=== PATIENT | female | born 1935 | race Caucasian/White ===

== ENCOUNTER 2021-12-18 03:34 | Inpatient (IN) | payer MEDICARE, MEDICAID, SELFPAY ==
[2021-12-18] VITALS (59 sets, daily range): BP systolic 52–143; BP diastolic 31–80; PULSE 98–118; RESP 16–34; TEMP 36.8–38.4; O2SAT 76–100; BMI 36.6
--- NOTE | 2021-12-18 03:43 | XRR_ITS ---
PROCEDURE INFORMATION: Exam: XR Chest Exam date and time: 12/18/2021 3:44 AM Age: 86 years old Clinical indication: Device placement; Ett placement (vent status); Patient HX: Patient arrived via EMS for possible stemi alert. Patient C/O chest and mid back pain with witnessed emesis. Patient had to be intubated shortly after er arrival. ; Additional info: Intubation TECHNIQUE: Imaging protocol: XR of the chest. Views: 1 view. COMPARISON: CR Chest 1 [place] [id number] 12/02/2017 1:55 PM FINDINGS: Tubes, catheters and devices: Support tubes and lines are in good position. Lungs: Hazy left basilar opacity which could be secondary to atelectasis or pneumonia. Pleural spaces: Unremarkable. No pleural effusion. No pneumothorax. Heart/Mediastinum: Unremarkable. No cardiomegaly. Bones/joints: Unremarkable. XR/XR chest 1V portable [id number] IMPRESSION: 1. Hazy left basilar opacity which could be secondary to atelectasis or pneumonia. 2. Support tubes and lines are in good position.
--- NOTE | 2021-12-18 03:56 | ECG_ITS ---
[facility] Test Date: 2021-12-18 Pat Name: Lety Rogers Department: Room: ICU11 Gender: Female Clinical Phlebotomist: : [id number] Requested By: Werner Delgadillo Order Number: [id number] Svetlana MD: Enzo Brandon M.D. Measurements Intervals [place] Rate: 113 P: 5 ID: [id number] QRS: -41 QRSD: 145 T: 117 QT: 336 QTc: 461 Interpretive Statements SINUS TACHYCARDIA LEFT AXIS DEVIATION [QRS AXIS < -30] LEFT BUNDLE BRANCH BLOCK [120+ ms QRS DURATION, 80+ ms Q/S IN V1/V2, 85+ ms R IN I/aVL/V5/V6] Compared to ECG 12/02/2017 13:49:02 Left-axis deviation now present Left bundle-branch block now present Sinus rhythm no longer present Electronically Signed On 12-18-2021 11:32:58 CDT by Enzo Brandon M.D. [id number]
[2021-12-18 04:13] LABS: Basophils # 0.1 10^3/uL (0.0-0.1); Basophils % 0.3 %; Eosinophils # 0.4 10^3/uL (0.0-0.8); Eosinophils % 2.1 %; Hematocrit 33.3 % (37.0-47.0); Hemoglobin 10.1 g/dL (11.5-15.3); Lymphocytes # 5.6 10^3/uL (0.8-4.8); Lymphocytes % 30.8 %; Mean Corpuscular HGB Conc 30.3 g/dL (30.0-36.0); Mean Corpuscular Hemoglobin 26.4 pg (28.0-34.0); Mean Corpuscular Volume 87.2 fl (81-99); Mean Platelet Volume 9.4 fL (7.4-10.4); Monocytes # 0.8 10^3/uL (0.2-0.9); Monocytes % 4.5 %; Neutrophils # 11.21 10^3/uL (1.8-7.7); Neutrophils % 61.3 %; Nucleated Red Blood Cells % 0 %; Platelet Count 1058 10^3/cmm (130-400); Red Blood Count 3.82 10^6/uL (4.1-5.3); Red Cell Distribution Width 14.7 % (12.1-15.1); White Blood Count 18.3 10^3/uL (4.0-10.0)
[2021-12-18] MEDS: aspirin 325 mg Tablet PO ×2 (04:23→08:30)
[2021-12-18 04:32] LABS: Alanine Aminotransferase 18 U/L (0-33); Albumin Level 4.6 g/dL (3.5-5.2); Alkaline Phosphatase 125 IU/L (35-105); Anion Gap 22.8 (5-19); Aspartate Amino Transferase 26 U/L (0-32); Blood Urea Nitrogen 25 mg/dL (8-23); Calcium 9.7 mg/dL (8.5-10.5); Carbon Dioxide 19 mmol/L (22-29); Chloride 95 mmol/L (98-107); Creatine Phosphokinase 74 U/L (26-192); Globulin 2.9 g/dL (1.3-4.6); Glucose 145 mg/dL (65-115); NT Pro B Type Natriuretic Pept 859 pg/mL (0-450); Osmolality Calculated 281 mOsm/kg (285-295); Potassium 4.8 mmol/L (3.5-5.1); Sodium 132 mmol/L (136-145); Total Bilirubin 0.2 mg/dL (0.15-1.2); Total Protein 7.5 g/dL (6.6-8.7)
[2021-12-18] MEDS: EPINEPHrine 2.5 MG in sodium chloride 0.9% 250 ML 30 MG IV (04:32)
[2021-12-18 04:33] LABS: Troponin(5th) Baseline 61 ng/L (0-10)
[2021-12-18 04:34] LABS: INR 0.94 (0.8-1.2); Partial Thromboplastin Time 23.1 SECONDS (23.9-36.7)
--- NOTE | 2021-12-18 04:35 | PM.CONSULT ---
Providers/Reason For Consult Consulting Physician/Specialty*: Cardiovascular medicine Reason for Consult*: STEMI alert Requesting Physician: Dr. Garcia Primary Care Provider: Hu Del Rosario History of Present Illness History of Present Illness Lety Rogers is a 86 year old female whose past medical history is largely unknown. She does not receive much of her care at this hospital choosing to have her care given in [place]. Her daughter is with her. Her daughter is also not particularly well versed in the patient's past medical history. All she could tell me was that the patient has stents, is a diabetic and has some form of leukemia. Patient's medication list is 6 pages long. Her daughter told me that the patient called her at home stating that she did not feel well and was sick . Patient has been constipated for the last couple of days. The patient's daughter helped her onto the bedside commode and the patient began to have nausea and vomited and then had glassy eyes . She did not have chest pain or shortness of breath. The daughter then called 911. She was brought here and was hypotensive. She was still nauseated and vomiting. She was not having any chest discomfort. The original EKG showed what the emergency room physician thought was some ST segment elevation in one of the inferior leads. Subsequently the patient became more ill and required endotracheal intubation and sedation. She was given 30 mg of etomidate, 100 mg of succinylcholine and because her blood pressure was dropping was given about 5 doses of 0.1 mL of epinephrine. She was then placed on an epinephrine drip. She was given 4000 units of heparin and aspirin. After the intubation EKG revealed the onset of a left bundle branch block and so as a result of that a STEMI alert was called. When I came in the patient was still being resuscitated. Once the resuscitation improved the patient's status, her QRS complexes narrow down. A repeat EKG showed no ST segment elevation inferiorly or anteriorly. We then called off the STEMI alert. As mentioned we have very little regarding her past medical history. Original in early labs include a white blood cell count of 18.3, hemoglobin of 10.1, CO2 of 19 and a creatinine of 1.6. Her chest x-ray is unremarkable except for small area of haziness at the left base. There is no evidence of congestive heart failure. Her medications include an albuterol inhaler, Flonase inhaler, insulin, Combivent inhaler, sublingual nitroglycerin, baclofen, thyroid, atorvastatin, Lasix 20 mg daily, ciprofloxacin, lisinopril 40 mg daily, isosorbide mononitrate 30 mg daily, Plavix 75 mg daily, Keppra, Effexor, metoprolol succinate 25 mg daily, multivitamins, low-dose aspirin, and other as needed medicines such as Tylenol. Review of Systems Narrative: Review of systems is unobtainable due to the patient's intubated status. Medications/Allergies Allergies Allergy/AdvReac Type Severity Reaction Status Date / Time ciprofloxacin Allergy Unknown Verified 12/18/21 03:34 metformin Allergy ADR-Headach Verified 12/18/21 03:34 e morphine Allergy ALGY-Swell Verified 12/18/21 03:34 Lip/Tongue/Throat nitrofurantoin Allergy ADR-Vomitin Verified 12/18/21 03:34 g rofecoxib Allergy ALGY-Hives Verified 12/18/21 03:34 Sulfa (Sulfonamide Allergy ADR-Vomitin Verified 12/18/21 03:34 Antibiotics) g Current Medications Generic Name Dose Route Start Last Admin Trade Name Freq PRN Reason Stop Dose Admin Epinephrine HCl 2.5 mg/ Sodium 252.5 mls @ 0 mls/hr 12/18/21 04:15 12/18/21 04:32 Chloride IV 0.05 mcg/kg/min .Q0M MOHSEN 30 mls/hr Administration Protocol Per Protocol PFSH Acute PFSH: Medical History (Updated 12/18/21 @ 04:58 by Enzo Brandon MD) CAD (coronary artery disease) CKD (chronic kidney disease) Congestive heart failure COPD (chronic obstructive pulmonary disease) DM type 2 (diabetes mellitus, type 2) Dyslipidemia Frequent UTI Hypothyroidism Occluded coronary artery stent Sarcoidosis Surgical History (Updated 12/18/21 @ 04:47 by Raphael Bravo MD) H/O Spinal surgery H/O: hysterectomy History of cholecystectomy Hx of appendectomy Stented coronary artery Family History (Updated 12/18/21 @ 04:37 by Raphael Bravo MD) Other CAD (coronary artery disease) DM type 2 (diabetes mellitus, type 2) Vitals/I&O/Wt Last Vital Signs Temp 98.2 F 04/02/22 03:32 Pulse 113 H 12/18/21 03:32 Resp 34 H 12/18/21 03:32 BP 99/55 12/18/21 03:32 Pulse Ox 88 L 12/18/21 03:32 Weight last 48 hrs Weight 200 lb Physical Exam Narrative: GENERAL: GENERAL: In general she is intubated and sedated. Her blood pressure is 80/40 on an epinephrine drip HEENT: Exam within normal limits. NECK: Supple without jugular vein distention. The carotid upstroke is normal without bruits. BACK: Exam normal. LUNGS: Clear. HEART: Regular rate and rhythm. Tachycardia ABDOMEN: Benign without organomegaly or tenderness. There is a large midline scar EXTREMITIES: No edema. NEUROLOGIC: Exam is not done due to her intubated status SKIN: Unremarkable. Data : 12/18/21 03:35 12/18/21 03:35 Other Labs: First troponin 61. BNP 859. A&P Assessment and plan (1) Hypotension: Status: Acute (2) Metabolic acidosis: Status: Acute (3) Elevated troponin: Status: Acute (4) Renal insufficiency: Status: Acute (5) CAD (coronary artery disease): Status: Acute (6) CKD (chronic kidney disease): Status: Acute (7) COPD (chronic obstructive pulmonary disease): Status: Acute (8) DM type 2 (diabetes mellitus, type 2): Status: Acute (9) Respiratory failure: Status: Acute Plan She will. When I looked at the original EKG I did not see any evidence of acute ST segment elevation which would qualify for a STEMI. The left bundle branch block occurred when she was hypotensive and being resuscitated. This has resolved now that the resuscitation is complete. Repeat EKG does not show any evidence of ST elevation either inferiorly or anteriorly. Because of this, I decided not to take her to the catheterization laboratory. We will follow her troponins. Other complications include what is most likely chronic renal failure with an acute exacerbation, metabolic acidosis among others. She is certainly critically ill and I have communicated this to her daughter as best as possible. 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
[2021-12-18] MEDS: heparin 5,000 unit/mL INJ 1 mL 4000 UNIT IVP (04:36)
[2021-12-18] MEDS: piperacillin-tazobactam 4.5 GM in sodium chloride 0.9% (plus) 50 ML IV (04:53)
[2021-12-18] MEDS: vancomycin 1,000 MG in sodium chloride 0.9% 250 ML 250 MG IV (05:07)
[2021-12-18 05:14] LABS: ABG PCO2 34.6 mmHg (35-45); ABG PH Result 7.27 (7.35-7.45); Arterial Blood Gas Hematocrit 30.8 % (37-47); Base Excess ABG -10.1 mmol/L (-2.0-2.0); Blood Gas Allen Test Pos; Blood Gas Sample Site Radial, left; Blood Gas Sample Type Arterial; HCO3 ABG 15.9 mmol/L (22-26); Oxygen Device VENT
--- NOTE | 2021-12-18 05:17 | W.ED.CHESTPA ---
HPI - Chest Pain General: Chief Complaint: Chest Pain Stated Complaint: CP/Back pain, hypotensive Time Seen by Provider: 12/18/21 03:56 History of Present Illness: 86-year-old female presenting with chest discomfort. I was called by EMS when they were in route, as she was having chest pain and shortness of breath. In route for EMS, she had ST elevation of 1 block in leads III and aVF. She was also hypotensive. She been given push dose epinephrine twice, fentanyl for pain, and 1 L bolus of fluid. She presented with worsening hypoxia. She is unable to give much history. She has been nauseated and vomiting at home. MD complaint: chest pain Pertinent past history: other Onset (ago): hour(s) Timing of current episode: constant Onset: during rest Pain location: substernal and epigastric Pain radiation: none Severity: severe Quality: tightness and heaviness Relieving factors: nothing Exacerbating factors: nothing Associated symptoms: Reports abdominal pain, diaphoresis, dyspnea, leg edema, nausea, palpitations and vomiting; Deny fever(s) Treatment prior to arrival: oxygen and other Review of Systems Const: Reports: diaphoresis; Denies: fever(s) ENMT: Denies: throat pain Card: Reports: chest pain and palpitations Resp: Reports: dyspnea and non-productive cough; Denies: productive cough GI: Reports: abdominal pain, nausea and vomiting [facility] ED PFSH: Medical History CAD (coronary artery disease) CKD (chronic kidney disease) Congestive heart failure COPD (chronic obstructive pulmonary disease) DM type 2 (diabetes mellitus, type 2) Dyslipidemia Frequent UTI Hypothyroidism Intolerance of continuous positive airway pressure (CPAP) ventilation Occluded coronary artery stent MADAY (obstructive sleep apnea) Sarcoidosis Surgical History H/O Spinal surgery H/O: hysterectomy History of cholecystectomy Hx of appendectomy Stented coronary artery Family History Other CAD (coronary artery disease) DM type 2 (diabetes mellitus, type 2) Social History Smoking and tobacco status: never smoked Lives independently: No Household members: family Physical Exam Const: GENERAL APPEARANCE: in distress, ill appearing and frail appearing NUTRITIONAL APPEARANCE: obese ORIENTATION/CONSCIOUSNESS: Yes awake, Yes oriented to person and Yes confused HENMT: COMMON NORMALS: normocephalic, atraumatic and Normal external nose present HEAD & SCALP: normocephalic and atraumatic NOSE: Normal external nose present Eye: COMMON NORMALS: Equal, round and reactive pupils present and EOMs intact bilaterally PUPIL: Yes Equal, round and reactive pupils present Chest: COMMONS NORMALS: normal inspection of the chest Resp: EFFORT & INSPECTION: Yes respiratory distress, Yes labored and Yes uses accessory muscles AUSCULTATION: rales and rhonchi Cardio: COMMON NORMALS: regular rhythm RATE: tachycardic RHYTHM: regular rhythm GI: COMMON NORMALS: Soft to palpation INSPECTION: Yes abdominal distension PALPATION: Yes Soft to palpation, Yes Tenderness to palpation present (GI) and Yes Guarding due to palpation present (GI) Neuro: UMM COMA SCALE: document GCS findings Umm coma scale eye opening: Spontaneous Schwertner coma scale verbal response: Confused Umm coma scale motor response: Obey commands Schwertner coma scale total score: 14 SENSORIUM/ORIENTATION: Yes oriented to person Procedures Intubation Time out performed: No sedative: Etomidate Mg Given: 20 paralytic: Succinylcholine Mg Given: 100 Laryngoscope: Dina ET Tube Size: 7.5 ET Tube Uncuffed: No Tube Secured Depth (cm): 22 Tube Secured Location: lips Tube Placement Confirmation: visualized tube passing through cords, equal breath sounds bilaterally and confirmation by capnometry Patient Tolerated Procedure: no complications Intubation Complications: none Course Consultations: Consultation #1: reza Consultation #2: shayne Vital Signs: Vital signs: Vital Signs Temperature 100.6 F H 12/19/21 02:00 Pulse Rate 103 H 12/19/21 02:00 Respiratory Rate 17 12/19/21 03:35 Blood Pressure 98/47 12/19/21 02:00 Pulse Oximetry 94 12/19/21 03:35 MDM - Chest Pain Medical Decision Making 86-year-old female presenting with chest discomfort. Initial EKG showed 1 mm of elevation in 3 and aVF in the field. EKG was difficult to get due to respiratory distress and chest wall motion when she got here. Oxygen saturations were marginal on 100% nonrebreather, so the decision was made to intubate the patient as her mental status was beginning to fail and she was not pulling adequate tidal volumes. She was intubated without complication, after which EKG was obtained and did not show significant ST elevation in those inferior leads or any other lead. Shortly thereafter, within 3 minutes or so, her complexes widened out, to show a large left bundle. Cardiology had been consulted on the patient's arrival due to the ST elevation apparent in the field. With recommendations to repeat EKG after placing on ventilator, and with widening of complex, they were consulted again. They agreed to call the Straightening Machine Feeder in and see the patient in the ER in the meantime the patient became significantly hypotensive. Push dose epinephrine was used until epinephrine drip was available and was started. This helped pressure significantly. Given her apparent hypoxia after 1 L bolus in route, we elected not to use fluid boluses for blood pressure support initially. After blood pressure improved, complexes narrowed again, and the left bundle went away. Given her hypotension, and hypoxia, it was thought best not to take the Straightening Machine Feeder with her being unstable. Despite the hypotension, her troponin did not elevate terribly significantly at 2 hours. Her initial white blood cell count was 18.3. Hemoglobin 10. Bicarbonate 19. Creatinine 1.6. Chest x-ray showed a gas-filled loop in the colon. Repeat chest x-ray showed tubes in appropriate positions. Orogastric tube was placed with a fair amount of output. She went to the ICU. Pressors were at that point were both Levophed and epinephrine. She was covered with antibiotics given her lactic acid level of 6. Lab Data : 12/18/21 03:35 12/18/21 03:35 Radiology Impressions KUB X-Ray 12/18/21 05:24 IMPRESSION: 1. Examination limited by body habitus. 2. Nondistended Gas-filled loop of colon is present. Otherwise, the abdomen is largely gasless. Abdomen Ultrasound 12/18/21 07:05 IMPRESSION: No intraperitoneal fluid in the visualized abdomen. Renal Ultrasound 12/18/21 07:05 IMPRESSION: Technically limited examination with poor visualization of the kidneys, which can be better evaluated with CT if clinically indicated. Chest X-Ray 12/18/21 07:58 IMPRESSION: 1. Termination of endotracheal tube 3.0 cm above the leslie. Termination of central venous catheter in superior vena cava. Feeding tube courses in the gastric body with distal tip not visualized. 2. Additional findings as described above. Venous Duplex 12/18/21 13:43 IMPRESSION: No evidence of deep vein thrombosis. Laboratory Results WBC 18.3 10^3/uL (4.0-10.0) H 12/18/21 03:35 RBC 3.82 10^6/uL (4.1-5.3) L 12/18/21 03:35 Hgb 10.1 g/dL (11.5-15.3) L 12/18/21 03:35 Hct 33.3 % (37.0-47.0) L 12/18/21 03:35 MCV 87.2 fl (81-99) 12/18/21 03:35 MCH 26.4 pg (28.0-34.0) L 12/18/21 03:35 MCHC 30.3 g/dL (30.0-36.0) 12/18/21 03:35 RDW 14.7 % (12.1-15.1) 12/18/21 03:35 Plt Count 1058 10^3/cmm (130-400) H 12/18/21 03:35 MPV 9.4 fL (7.4-10.4) 12/18/21 03:35 Neut % (Auto) 61.3 % 12/18/21 03:35 Lymph % (Auto) 30.8 % 12/18/21 03:35 [place]iscoe % (Auto) 4.5 % 12/18/21 03:35 Eos % (Auto) 2.1 % 12/18/21 03:35 Baso % (Auto) 0.3 % 12/18/21 03:35 Neut # (Auto) 11.21 10^3/uL (1.8-7.7) H 12/18/21 03:35 Lymph # (Auto) 5.6 10^3/uL (0.8-4.8) H 12/18/21 03:35 [place]iscoe # (Auto) 0.8 10^3/uL (0.2-0.9) 12/18/21 03:35 Eos # (Auto) 0.4 10^3/uL (0.0-0.8) 12/18/21 03:35 Baso # (Auto) 0.1 10^3/uL (0.0-0.1) 12/18/21 03:35 Nucleated RBC % (auto) 0 % 12/18/21 03:35 Nucleated RBCs # 0.0 /100WBC 12/18/21 03:35 PT 12.80 SECONDS (12.1-14.9) 12/18/21 03:35 INR 0.94 (0.8-1.2) 12/18/21 03:35 APTT 23.1 SECONDS (23.9-36.7) L 12/18/21 03:35 Specimen Type Arterial 12/18/21 05:04 Sample Site Radial, left 12/18/21 05:04 ABG pH 7.27 (7.35-7.45) L 12/18/21 05:04 ABG pCO2 34.6 mmHg (35-45) L 12/18/21 05:04 ABG pO2 255.0 mmHg (80.0-100.0) H 12/18/21 05:04 ABG HCO3 15.9 mmol/L (22-26) L 12/18/21 05:04 ABG Base Excess -10.1 mmol/L (-2.0-2.0) L 12/18/21 05:04 Saleem Test Pos 12/18/21 05:04 Hematocrit 30.8 % (37-47) L 12/18/21 05:04 O2 Delivery Device Vent 12/18/21 05:04 FiO2 100.0 % 12/18/21 05:04 PEEP 5.0 cmH20 12/18/21 05:04 Balance Wheel Screw Hole Driller ID Hensa 12/18/21 05:04 Sodium 132 mmol/L (136-145) L 12/18/21 03:35 Potassium 4.8 mmol/L (3.5-5.1) 12/18/21 03:35 Chloride 95 mmol/L (98-107) L 12/18/21 03:35 Carbon Dioxide 19 mmol/L (22-29) L 12/18/21 03:35 Anion Gap 22.8 (5-19) H 12/18/21 03:35 BUN 25 mg/dL (8-23) H 12/18/21 03:35 Creatinine 1.6 mg/dL (0.5-0.9) H 12/18/21 03:35 GFR Calculation Not Reportable 12/18/21 03:35 Glucose 145 mg/dL (65-115) H 12/18/21 03:35 Calculated Osmolality 281 mOsm/kg (285-295) L 12/18/21 03:35 Lactate 6.1 mmol/L (0.5-2.2) H* 12/18/21 04:59 Calcium 9.7 mg/dL (8.5-10.5) 12/18/21 03:35 Total Bilirubin 0.2 mg/dL (0.15-1.2) 12/18/21 03:35 AST 26 U/L (0-32) 12/18/21 03:35 ALT 18 U/L (0-33) 12/18/21 03:35 Alkaline Phosphatase 125 IU/L (35-105) H 12/18/21 03:35 Creatine Kinase 74 U/L (26-192) 12/18/21 03:35 Troponin T Baseline 61 ng/L (0-10) H 12/18/21 03:35 NT-Pro-B Natriuret Pep 859 pg/mL (0-450) H 12/18/21 03:35 Total Protein 7.5 g/dL (6.6-8.7) 12/18/21 03:35 Albumin 4.6 g/dL (3.5-5.2) 12/18/21 03:35 Globulin 2.9 g/dL (1.3-4.6) 12/18/21 03:35 Random Cortisol 31.28 ug/dL (2.47-19.5) H 12/18/21 03:35 Critical Care Time Critical Care Time: Critical Care Time: Yes Total Critical Care Time: 75 Attestation: This case had a high probability of a clinically significant, sudden, or life threatening deterioration of this patient's condition which required my full and direct attention, intervention and personal management. Time excludes procedures performed on the patient including intubation. Discharge Plan Discharge Patient Disposition: Admitted As Inpatient Admit Provider: Raphael Bravo Condition: Stable Coding Level of Care Code ED Clay Burner for Jerrica Esposito
--- NOTE | 2021-12-18 05:24 | XRR_ITS ---
PROCEDURE INFORMATION: Exam: XR Abdomen Exam date and time: 12/18/2021 5:41 AM Age: 86 years old Clinical indication: Vomiting; Prior surgery; Surgery type: Appy. Gb. Hysterectomy. ; Patient HX: Abd distention with an episode of emesis just prior to intubation. ; Additional info: Abdo distention, vomiting, shock, TECHNIQUE: Imaging protocol: XR of the abdomen. Views: Frontal supine view of the abdomen. 1 View. COMPARISON: CR (CHEST, ) 12/18/2021 5:39 AM FINDINGS: Gastrointestinal tract: Nondistended Gas-filled loop of colon is present. Otherwise, the abdomen is largely gasless. Bones/joints: Unremarkable. Soft tissues: Examination limited by body habitus. XR/XR KUB portable [id number] IMPRESSION: 1. Examination limited by body habitus. 2. Nondistended Gas-filled loop of colon is present. Otherwise, the abdomen is largely gasless.
--- NOTE | 2021-12-18 05:34 | XRR_ITS ---
PROCEDURE INFORMATION: Exam: XR Chest Exam date and time: 12/18/2021 5:39 AM Age: 86 years old Clinical indication: Other: Hypotension. Tachycardia; Prior surgery; Surgery type: Persistent tachycardia with hypotension. History of chf. ; Patient HX: Coronary stent. ; Additional info: Shock. Abd distention. TECHNIQUE: Imaging protocol: XR of the chest. Views: 1 view. COMPARISON: CR (CHEST, ) 12/18/2021 3:44 AM FINDINGS: Tubes, catheters and devices: Endotracheal tube is approaching the right mainstem bronchus and should be withdrawn approximately 3 cm. Nasogastric tube is in good position. Lungs: Hazy left basilar opacity which could be secondary to atelectasis or pneumonia. Pleural spaces: Unremarkable. No pleural effusion. No pneumothorax. Heart/Mediastinum: Unremarkable. No cardiomegaly. Bones/joints: Unremarkable. XR/XR chest 1V portable [id number] IMPRESSION: 1. Endotracheal tube is approaching the right mainstem bronchus and should be withdrawn approximately 3 cm. 2. Hazy left basilar opacity which could be secondary to atelectasis or pneumonia. 3. Nasogastric tube is in good position.
--- NOTE | 2021-12-18 05:43 | P.HP_ITS ---
Providers/Chief Complaint Primary Care Provider: [facility] Chief Complaint: CP/Back pain, hypotensive History of Present Illness 86-year-old lady with history of CAD, stenting x3, CHF, sarcoidosis of the lung, COPD, DM 2, hypothyroidism, dementia was brought in after her daughter found her not doing well at 2 AM this morning. Her daughter noticed that she was breathing very fast. She states she did not look well, looked pale, glassy eyed. She had asked to get up to use the restroom, but states that she was very weak, while on the toilet she had vomited several times. Try to get up she had slumped down to the floor and daughter could not help her up. This is when she called for EMS. She had subsequently vomited several more times. Found to be very hypoxic by EMS was started on nonrebreather. Received 1 L bolus in route due to low blood pressure. EKG was performed with possible small changes of ST segment. In ER again noted hypoxic, with bilateral crackles, as well as nauseated, and about to vomit again. Noted hypotensive on presentation, blood pressure 66/48. Repeat EKG with noted widening of QRS complex with possible new left bundle branch block. STEMI alert was called, she was assessed by cardiology, although upon intubation to secure her airway, QRS widening had resolved. Baseline troponin 61. NT proBNP 859. She has been on Plavix as well as twice daily aspirin which her daughter states she had taken at home. She received aspirin, loading dose of heparin, loading dose of Plavix was ordered initially but was not given since she has been taking Plavix at home. She was initially noted saturating 85-95% on 100% FiO2. This subsequently increased to 100%. She initially received a push of epinephrine, then started on epinephrine infusion. She was not found to have compelling enough indication without ST elevation on repeat EKGs to justify the risk with currently unstable condition due to other reasons to justify assessment by coronary angiography. She is afebrile here, but with noted leukocytosis of 18.3. Hemoglobin 10.1. Noted thrombocytosis complete less than 1058. Chest x-ray with hazy left basilar opacity, possibly atelectasis or pneumonia. She is started on Zosyn and vancomycin. Also noted sodium 132, chloride 95, bicarb 19, anion gap 22.8. BUN 25, creatinine 1.6. Her daughter denies her mother having any abdominal pain last several days, although states she had not had a bowel movement for 2 days. She states she not have any trouble with eating or drinking. She does feel that something was wrong with her mother for some time, possibly close to a week. She states on Monday she had a low-grade temperature of 99.7. However, she states her mother would deny that anything was wrong. She states that her mother's abdomen has usually been large, although she feels it may have looked more distended. Daughter states she has been prone to urinary tract infections in the past. She denies any recent medication changes. Daughter states her mother does not normally use supplemental oxygen currently although did so in the past for a while. She states she had been previously started on CPAP after a sleep study, but that she would not tolerate anything being on her face, continue to take the mask off, and the CPAP was returned. With regards to CODE STATUS, she states her mother stated several different things in the past. She had previously stated she would not want cardiopulmonary resuscitation in case of cardiopulmonary arrest, then states that they had additional conversation and at that time she had agreed on discussion with her daughter regarding attempting CPR/resuscitation. Daughter has power of surveillance agent. Review of Systems General: Reports: ROS unobtainable due to endotracheal tube Medications/Allergies Allergies Allergy/AdvReac Type Severity Reaction Status Date / Time ciprofloxacin Allergy Unknown Verified 12/18/21 03:34 metformin Allergy ADR-Headach Verified 12/18/21 03:34 e morphine Allergy ALGY-Swell Verified 12/18/21 03:34 Lip/Tongue/Throat nitrofurantoin Allergy ADR-Vomitin Verified 12/18/21 03:34 g rofecoxib Allergy ALGY-Hives Verified 12/18/21 03:34 Sulfa (Sulfonamide Allergy ADR-Vomitin Verified 12/18/21 03:34 Antibiotics) g PFSH Acute PFSH: Medical History (Updated 12/18/21 @ 06:03 by Raphael Bravo MD) CAD (coronary artery disease) CKD (chronic kidney disease) Congestive heart failure COPD (chronic obstructive pulmonary disease) DM type 2 (diabetes mellitus, type 2) Dyslipidemia Frequent UTI Hypothyroidism Intolerance of continuous positive airway pressure (CPAP) ventilation Occluded coronary artery stent MADAY (obstructive sleep apnea) Sarcoidosis Surgical History (Updated 12/18/21 @ 04:47 by Raphael Bravo MD) H/O Spinal surgery H/O: hysterectomy History of cholecystectomy Hx of appendectomy Stented coronary artery Family History (Updated 12/18/21 @ 04:37 by Raphael Bravo MD) Other CAD (coronary artery disease) DM type 2 (diabetes mellitus, type 2) Social History Smoking and tobacco status: never smoked Lives independently: No Household members: family Vitals/I&O/Wt Last Vital Signs Temp 98.2 F 12/18/21 03:32 Pulse 113 H 12/18/21 03:32 Resp 20 H 12/18/21 05:23 BP 99/55 12/18/21 03:32 Pulse Ox 88 L 12/18/21 03:32 12/17/21 12/17/21 12/18/21 14:59 22:59 06:59 Intake Total 62.175 / 62.175 Balance 62.175 / 62.175 Weight last 48 hrs Weight 90.718 kg Physical Exam Narrative: Intubated, sedation with fentanyl, Versed Const: NUTRITIONAL APPEARANCE: obese OTHER: Clammy HENMT: COMMON NORMALS: normocephalic, EAC's normal, Normal external nose present and moist oral mucous membranes HEAD & SCALP: normocephalic NOSE: Normal external nose present EXTERNAL AUDITORY CANAL: EAC's normal Chest: CHEST: Yes Symmetrical chest wall rise Resp: COMMON NORMALS: clear to auscultation bilaterally AUSCULTATION: clear to auscultation bilaterally Cardio: COMMON NORMALS: regular rate, regular rhythm and No murmurs present (Cardio) RATE: regular rate and tachycardic RHYTHM: regular rhythm GI: COMMON NORMALS: Soft to palpation and non-tender INSPECTION: Yes other (Large abdomen) AUSCULTATION: Yes Hypoactive bowel sounds present PALPATION: Yes Soft to palpation Extremity: COMMON NORMALS: no pedal edema Neuro: MENINGEAL SIGNS: Yes no meningeal signs OTHER: Sedated Skin: COMMON NORMALS: no wounds RASHES: no rashes OTHER: Decreased cap refill Data : 12/18/21 03:35 12/18/21 03:35 Micro: Microbiology 12/18/21 04:33 Blood Culture - Preliminary Blood SPECIMEN COLLECTED 12/18/21 04:59 Blood Culture - Preliminary Blood SPECIMEN COLLECTED A&P Assessment and plan (1) Acute and chronic respiratory failure with hypoxia: Requiring 15 L nonrebreather on presentation, still intubated, requiring high percent FiO2 and with that saturating 85-95%. Currently saturation slightly better up to 100%. Left lower lobe pneumonia noted. Started on empiric antibiotics with Zosyn, vancomycin. Daughter reports multiple episodes of vomiting, discussed possibility of aspiration component. Daughter reports low- grade temp earlier in the week on Monday. Will check COVID-19. Discussed with her daughter cannot exclude possible PE, will continue with heparin drip at this time. She is currently too unstable to try to get CTA. Consider additional imaging to exclude PE and de-escalate anticoagulation once able. Reported also history of CHF. NT proBNP is moderately elevated. Noted possible septic shock with lactic acidosis, lactic acid 6.1, received 1 L of fluid in route, however, with crackles on presentation with concern for fluid overload at this time will avoid giving 30 cc/kg resuscitation. Continue pressor support with Levophed. Blood cultures collected. Status: Acute (2) Shock: Initially concern for STEMI, possibility of cardiogenic shock, however, this appears to be less. STEMI alert was called off, no ST elevation noted on subsequent EKG. Reversal of transient widening of QRS. Initial troponin 61. Complete troponin EKG series. Assess TTE. Possible septic shock with pneumonia, daughter also reports history of recurrent UTI. Blood cultures collected. Continue antibiotic coverage. Discussed with daughter lower possibility but cannot exclude at this time PE. Continue anticoagulation for now until stabilizes somewhat further to be able to assess with CTA. Assess TTE. With history of sarcoidosis of the lung. Mild hyponatremia with normal potassium. I do see also past prescription of steroid. Requested serum cortisol. Will give stress dose steroid as well with suspicion of component of adrenal sufficiency. Status: Acute (3) Lactic acidosis: As above. Used to be on Metformin in the past, but no longer. Status: Acute (4) Pneumonia: Continue Zosyn, vancomycin. Possible component of aspiration. Check COVID-19. As above. Status: Acute (5) Abdominal distention: Daughter reports her mother always has a large abdomen, but feels perhaps abdomen could be more distended than usual. Acute abdominal series obtained. Not very stable to go to the CT at the moment. X-ray shows nondistended gas-filled loop of colon, otherwise abdomen largely gasless. Requesting limited ultrasound to assess for ascites given history of CHF, sales assistant displays mally abdominal distention. With significant lactic acidosis, consideration may be given to possible bowel ischemia, although daughter denies symptoms that would suggest bowel ischemia, although cannot exclude global hypoperfusion with hypotension. Currently would not be stable enough to proceed with surgery. Status: Acute (6) BRIGIDA (acute kidney injury): Possible BRIGIDA on CKD, versus CKD. Baseline creatinine currently is unknown. C reatinine at the moment is 1.6. With hypotension, shock, anticipate acute kidney injury. Iyer catheter had been placed. Additionally assessed by kidney ultrasound. Hold lisinopril. Monitor LAITH. Reassess renal function. Status: Acute (7) Elevated troponin: Cardiology evaluation appreciated. Initially concern for STEMI, possibility of cardiogenic shock, however, this appears to be less. STEMI alert was called off, no ST elevation noted on subsequent EKG. Reversal of transient widening of QRS. Initial troponin 61. Complete troponin EKG series. Assess TTE. Continue aspirin, Plavix with history of stenting. Beta-cate on hold. Continue statin. Status: Acute (8) DM type 2 (diabetes mellitus, type 2): Continue insulin glargine, decrease dose to 40 units at bedtime. Sliding scale. 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 History of COPD: Not in exacerbation Daughter reports she was temporarily on CPAP after sleep study, sounds like history of MADAY, but would not tolerate anything being on her face Dementia Attestations Medical Necessity Statement*: Admission of over 2 midnights is anticipated for assessment and management of hypoxic respite failure, shock, septic shock, pneumonia, BRIGIDA Critical Care Time: The high probability of a clinically significant, sudden or life threatening deterioration of the patient's hemodynamic, respiratory, infectious disease, GI system(s) required my full and direct attention, intervention and personal management. The critical care time is as shown. This time is in addition to time spent performing any reported procedures but includes the following: x Data and vital sign review and interpretation x Patient assessment, examination and intervention x Documentation x Medication orders and management Critical Care Time (min): 55 Coding Level of Care Code Acute Pipe Threader for g Fwd Diagnoses Acute and chronic respiratory failure with hypoxia J96.21 Shock R57.9 Pneumonia J18.9 BRIGIDA (acute kidney injury) N17.9 Elevated troponin R77.8 DM type 2 (diabetes mellitus, type 2) E11.9 Lactic acidosis E87.2 Abdominal distention R14.0
--- NOTE | 2021-12-18 05:56 | ECG_ITS ---
[facility] Test Date: 2021-12-18 Pat Name: Lety Rogers Department: Room: ICU11 Gender: Female Digital Strategy Specialist: : 1935 Requested By: Werner Delgadillo Order Number: [id number] Svetlana MD: Enzo Brandon M.D. Measurements Intervals [place] Rate: 104 P: 44 RI: 151 QRS: -9 QRSD: 82 T: 82 QT: 289 QTc: 380 Interpretive Statements SINUS TACHYCARDIA NONSPECIFIC ST & T-WAVE ABNORMALITY ABNORMAL RHYTHM ECG Compared to ECG 12/18/2021 03:50:17 T-wave abnormality now present Left-axis deviation no longer present Left bundle-branch block no longer present Electronically Signed On 12-18-2021 11:37:59 CDT by Enzo Brandon M.D. [id number]
[2021-12-18 05:57] LABS: Lactate (Lactic Acid level) 6.1 mmol/L (0.5-2.2)
[2021-12-18 06:11] LABS: Cortisol Random 31.28 ug/dL (2.47-19.5)
[2021-12-18 06:16] LABS: Troponin 5 2HR 111.1 ng/L (0-10)
[2021-12-18 06:17] LABS: Troponin 5 2HR Delta 50.1 ABS# (0-10)
--- NOTE | 2021-12-18 07:05 | USR_ITS ---
PROCEDURE INFORMATION: Exam: US Retroperitoneal; Complete; Kidneys and Bladder Exam date and time: 12/18/2021 10:09 AM Age: 86 years old Clinical indication: Other: Javed TECHNIQUE: Imaging protocol: Real-time ultrasound of the retroperitoneum with image documentation. Complete exam focused on the kidneys and bladder. COMPARISON: US abdomen lmt fluid [id number] 12/18/2021 10:03 AM FINDINGS: Evaluation is limited due to patient body habitus. Right kidney: Incomplete visualization of the right kidney, which measures approximately 9.4 cm in length. No hydronephrosis. Left kidney: Obscuration of the left kidney by bowel gas. Urinary bladder: Nondistended bladder limiting evaluation. US/US renal BI* [id number] IMPRESSION: Technically limited examination with poor visualization of the kidneys, which can be better evaluated with CT if clinically indicated.
--- NOTE | 2021-12-18 07:05 | USCV_ITS ---
Sue Lety Age: 86 Gender: F : 1935 Exam Date: 12/18/2021 21:45 Ordering Phys: Raphael Bravo MD Technologist: Raymond Mo Exam Location: [facility] – [place] Indication: shock, hypoxia, ekg changes, trop elev, cad, hx chf BP: 143 / 67 HR: 105 Rhythm: Sinus Technical Quality: Poor MEASUREMENTS (Male / Female) Normal Values 2D ECHO LV Diastolic Diameter PLAX 1.6 cm 4.2 - 5.9 / 3.9 - 5.3 cm LV Systolic Diameter PLAX 1.0 cm IVS Diastolic Thickness 2.0 cm 0.6 - 1.0 / 0.6 - 0.9 cm IVS Systolic Thickness 2.3 cm LVPW Diastolic Thickness 2.5 cm 0.6 - 1.0 / 0.6 - 0.9 cm LVPW Systolic Thickness 2.2 cm LVOT Diameter 2.0 cm LV Ejection Fraction 2D Teich 73.0 % LV Ejection Fraction MOD 2C 63.6 % LV Ejection Fraction 2C AL 64.6 % LA Diameter 3.1 cm Aorta at Sinotubular Diameter 2.4 cm M-MODE Aortic Annulus Diameter 1.8 cm LA Ao Ratio MM 1.7 MV E Point Septal Separation 0.7 cm DOPPLER AV Peak Velocity 135.0 cm/s LVOT Peak Velocity 87.7 cm/s AV Area Cont Eq vti 2.4 cm squared AV Area Cont Eq pk 2.1 cm squared MV Area PHT 3.2 cm squared Mitral E to A Ratio 0.6 MV E' Velocity 39.0 cm/s Mitral E to MV E' Ratio 9.4 Mitral E to LV E' Lateral Ratio 9.2 Mitral E to LV E' Septal Ratio 9.7 TR Peak Velocity 167.1 cm/s TR Peak Gradient 11.2 mmHg TR Mean Velocity 86.8 cm/s TR Mean Gradient 4.1 mmHg TR Velocity Time Integral 17.7 cm Right Atrial Pressure 15.0 mmHg Pulmonary Artery Systolic Pressu 26.2 mmHg PV Peak Velocity 137.0 cm/s FINDINGS Left Ventricle The study is suboptimal. The ventricle is not well seen. There is mild to moderate left ventricular hypertrophy. The ventricle is probably normal in size and function. An estimate of the ejection fraction is 60%. There is grade 2 diastolic dysfunction. Right Ventricle Right ventricle not well visualized. Normal right ventricular size and systolic function. Normal pulmonary artery pressure. Right Atrium Right atrium not well visualized. Left Atrium Left atrium not well visualized. Mitral Valve The valve is not well seen. There is no obvious mitral regurgitation. Aortic Valve Structurally normal trileaflet aortic valve. Tricuspid Valve Structurally normal tricuspid valve. Pulmonic Valve Pulmonic valve not well visualized. Pericardium Normal pericardium without effusion. Aorta Normal ascending aorta dimension. CONCLUSIONS The study is suboptimal. The ventricle is not well seen. There is mild to moderate left ventricular hypertrophy. The ventricle is probably normal in size and function. An estimate of the ejection fraction is 60%. There is grade [address] Enzo Brandon MD (Electronically Signed) Final Date: 19 December 2021 09:16 S
--- NOTE | 2021-12-18 07:05 | USR_ITS ---
PROCEDURE INFORMATION: Exam: US Abdomen; Limited Exam date and time: 12/18/2021 10:03 AM Age: 86 years old Clinical indication: Bloating; Additional info: Check for ascites TECHNIQUE: Imaging protocol: US abdomen. Real time ultrasound with image documentation. Limited exam focused on the region of clinical interest. COMPARISON: CR (ABDOMEN, ) 12/18/2021 5:41 AM FINDINGS: No intraperitoneal fluid is identified in the visualized abdomen. The abdominal viscera were not visualized on the limited examination performed. US/US abdomen t fluid [id number] IMPRESSION: No intraperitoneal fluid in the visualized abdomen.
[2021-12-18 07:21] LABS: Glucose Point of Care 165 mg/dL (70-110)
--- NOTE | 2021-12-18 07:24 | PC.NURSE ---
med charting correction; epi was charted at 0.07, changed to 7mcg/min to correct documentation
[2021-12-18 07:49] LABS: Urine Appearance SL Hazy (CLEAR); Urine Color Yellow (Yellow); pH Urine 5 (5-7)
[2021-12-18 07:50] LABS: Add Urine Microscopic? YES; Bilirubin Urine Neg (Negative); Blood Urine Neg (Negative); Glucose Urine UA Norm (Normal); Ketones Urine Negative (Negative); Leukocyte Esterase Urine 1+ (Negative); Nitrate Urine Positive (Negative); Protein Urine Neg (Negative); Urobilinogen Urine Norm (Negative)
[2021-12-18 07:51] LABS: Add Urine Culture? Yes; Bacteria Urine 4+ /hpf; Mucus Urine 1+ /hpf; Squamous Epithelial Cell Urine 0-4 /hpf (0-5); WBC Urine 40-55 /hpf (0-5)
--- NOTE | 2021-12-18 07:58 | XRR_ITS ---
PROCEDURE INFORMATION: Exam: XR Chest Exam date and time: 12/18/2021 8:16 AM Age: 86 years old Clinical indication: Device placement; Other: Central line placement TECHNIQUE: Imaging protocol: XR of the chest. Views: 1 view. COMPARISON: CR (CHEST, ) 12/18/2021 5:39 AM FINDINGS: Tubes, catheters and devices: Termination of endotracheal tube 3.0 cm above the leslie. Termination of central venous catheter in superior vena cava. Feeding tube courses in the gastric body with distal tip not visualized. Lungs: Hypoinflation with interstitial prominence and mild airspace disease. Pleural spaces: No pneumothorax or pleural effusion. Heart/Mediastinum: Borderline cardiomegaly. Vasculature: Aortic and tracheobronchial calcification. Bones/joints: Osteopenia and degenerative change. XR/XR chest 1V portable [id number] IMPRESSION: 1. Termination of endotracheal tube 3.0 cm above the leslie. Termination of central venous catheter in superior vena cava. Feeding tube courses in the gastric body with distal tip not visualized. 2. Additional findings as described above.
[2021-12-18] MEDS: ipratropium-albuterol 3 mL Neb INHALATION ×2 (08:00→20:48)
[2021-12-18] MEDS: budesonide 0.5 mg/2 mL Neb INHALATION ×2 (08:01→20:48)
--- NOTE | 2021-12-18 08:18 | PM.ACPR ---
Acute Procedures Central Line Placement: Right IJ: Patient placed on monitor/pulse ox: Yes MD prep: mask, gown, gloves and other (Consent obatined from daughter with discussion of risks and benefits. ) Central line prep: Chlorhexidine scrub Local anesthesia used: lidocaine 1% Amount of anesthesia used (ml): 3 Ultrasound used for placement: Yes Central line lumen inserted: triple Post procedure: sutured in place, good blood return, all ports aspirated, flushed, capped and sterile dressing applied Post procedure x-ray: tip of catheter in good position, no pneumothorax seen and other (On prelim view, pending upload/vrad interpretation.) Patient tolerated procedure: well and no complications
[2021-12-18] MEDS: heparin drip 25,000 UNIT/500 ML PREMIX 26 UNIT IV (08:22)
[2021-12-18] MEDS: pantoprazole 40 mg SDV IVP (08:31)
[2021-12-18] MEDS: clopidogrel 75 mg Tablet PO (08:31)
[2021-12-18] MEDS: insulin lispro 100 unit/1 mL SUBCUT ×3 (08:31→18:33)
[2021-12-18 08:57] LABS: Adenovirus Not Detected (NOT DETECT); Chlamydia Pneumoniae Not Detected (NOT DETECT); Coronavirus 229E,HKU1,NL63,OC4 Not Detected (NOT DETECT); Human Metapneumovirus Not Detected (NOT DETECT); Human Rhinovirus/Enterovirus Not Detected (NOT DETECT); Influenza A Not Detected (NOT DETECT); Influenza A H1 Not Detected (NOT DETECT); Influenza A H1-2009 Not Detected (NOT DETECT); Influenza A H3 Not Detected (NOT DETECT); Influenza B Not Detected (NOT DETECT); Mycoplasma Pneumoniae Not Detected (NOT DETECT); Parainfluenza Virus Type 1 Not Detected (NOT DETECT); Parainfluenza Virus Type 2 Not Detected (NOT DETECT); Parainfluenza Virus Type 3 Not Detected (NOT DETECT); Parainfluenza Virus Type 4 Not Detected (NOT DETECT); Respiratory Syncytial Virus A Not Detected (NOT DETECT); Respiratory Syncytial Virus B Not Detected (NOT DETECT); SARS-COV-2 Not Detected (NOT DETECT)
--- NOTE | 2021-12-18 09:56 | ECG_ITS ---
[facility] Test Date: 2021-12-18 Pat Name: Lety Rogers Department: Room: ICU11 Gender: Female Surgical Services Manager: : 1935 Requested By: Werner Delgadillo Order Number: [id number] Svetlana MD: Enzo Brandon M.D. Measurements Intervals [place] Rate: 107 P: 5 VA: 139 QRS: -5 QRSD: 86 T: 70 QT: 286 QTc: 382 Interpretive Statements SINUS TACHYCARDIA ABNORMAL RHYTHM ECG Compared to ECG 12/02/2017 13:49:02 Sinus rhythm no longer present Electronically Signed On 12-18-2021 11:37:40 CDT by Enzo Brandon M.D. [id number]
[2021-12-18] MEDS: norepinephrine 8 MG in dextrose 5 % 500 ML 76.2 MG IV (10:26)
--- NOTE | 2021-12-18 10:28 | PC.NURSE ---
Addendum entered by Asher Reyna RN 12/18/21 10:48: 3mcg/min. Epi adjusted at this time to 2mcg/min Original Note: Epi adjusted down to 0.3mcg/min
[2021-12-18] MEDS: hydrocortisone 100 mg/2 mL SDV IVP ×2 (10:36→22:39)
[2021-12-18] MEDS: sodium bicarbonate 8.4% 1 mEq/mL 50mL Syr 100 MEQ IVP (10:36)
--- NOTE | 2021-12-18 11:01 | PC.NURSE ---
Addendum entered by Asher Reyna RN 12/18/21 11:19: epi off at this time Original Note: epi titrated to 1mcg/min
[2021-12-18] MEDS: acetaminophen 325 mg Tablet 650 MG PO ×2 (11:55→21:09)
[2021-12-18 12:38] LABS: Glucose Point of Care 206 mg/dL (70-110)
--- NOTE | 2021-12-18 13:43 | USR_ITS ---
PROCEDURE INFORMATION: Exam: US Duplex Lower Extremity Veins, Bilateral Exam date and time: 12/18/2021 3:21 PM Age: 86 years old Clinical indication: Swelling (edema) of limb; Lower extremity, bilateral; Additional info: Dvt TECHNIQUE: Imaging protocol: Real-time Duplex ultrasound of the bilateral extremities with 2-D barrera scale, color Doppler flow and spectral waveform analysis with image documentation. Complete exam focused on the bilateral lower extremity veins. COMPARISON: US renal BI* [id number] 12/18/2021 10:09 AM FINDINGS: Right deep veins: Unremarkable. The common femoral, femoral, proximal profunda femoral and popliteal veins are patent without thrombus. Normal Doppler waveforms. Normal compressibility and/or augmentation response. Right superficial veins: Saphenofemoral junction is patent without thrombus. Left deep veins: Unremarkable. The common femoral, femoral, proximal profunda femoral and popliteal veins are patent without thrombus. Normal Doppler waveforms. Normal compressibility and/or augmentation response. Left superficial veins: Saphenofemoral junction is patent without thrombus. Soft tissues: Unremarkable. US/[place] [id number] IMPRESSION: No evidence of deep vein thrombosis.
--- NOTE | 2021-12-18 13:44 | PM.PN ---
Subjective Subjective: Patient was seen this morning, currently intubated, sedated, on 50% FiO2, on Levophed, epi drip, her map is at 65, heparin drip, patient's daughters at bedside, tells me that her physician has retired, and she is trying to see a new physician, she has had no acute events in her health recently, she does have a history of recurrent UTIs Vitals/I&O/Wt Last Vital Signs Temp 101.1 F H 12/18/21 12:00 Pulse 114 H 12/18/21 12:00 Resp 16 12/18/21 11:33 BP 112/61 12/18/21 12:00 Pulse Ox 98 12/18/21 12:00 12/17/21 12/18/21 12/18/21 22:59 06:59 14:59 Intake Total 121.483 / 121.483 996.709 / 996.709 Balance 121.483 / 121.483 996.709 / 996.709 Weight last 48 hrs Weight 90.718 kg Physical Exam Const: COMMON NORMALS: no acute distress OTHER: Intubated, sedated on mechanical ventilation Endotracheal tube in place Right central line in place Iyer catheter in place Eye: COMMON NORMALS: Equal, round and reactive pupils present PUPIL: Yes Equal, round and reactive pupils present Resp: COMMON NORMALS: normal respiratory effort, No retractions, No use of accessory muscles and clear to auscultation bilaterally AUSCULTATION: clear to auscultation bilaterally Cardio: COMMON NORMALS: S1 normal heart sound present and S2 normal heart sound present HEART SOUNDS: S1 normal heart sound present and S2 normal heart sound present GI: INSPECTION: Yes abdominal distension AUSCULTATION: Yes normoactive bowel sounds PALPATION: No Tenderness to palpation present (GI) Extremity: COMMON NORMALS: no pedal edema NARRATIVE EXTREMITY EXAM: DP PT pulses barely palpable Sepsis: Is patient septic: Yes Focused sepsis exam performed: Yes Focused sepsis exam: Bilateral lower extremities, DP PT pulses barely palpable, has cap refill, no mottling Data : 12/18/21 03:35 12/18/21 03:35 Micro: Microbiology 12/18/21 04:33 Blood Culture - Preliminary Blood SPECIMEN COLLECTED 12/18/21 04:59 Blood Culture - Preliminary Blood SPECIMEN COLLECTED A&P Assessment and plan (1) Acute and chronic respiratory failure with hypoxia: Requiring 15 L nonrebreather on presentation, still intubated, requiring high percent FiO2 and with that saturating 85-95%. Currently saturation slightly better up to 100%. Left lower lobe pneumonia noted. Started on empiric antibiotics with Zosyn, vancomycin. Daughter reports multiple episodes of vomiting, discussed possibility of aspiration component. Daughter reports low-grade temp earlier in the week on Monday. Will check COVID-19. Discussed with her daughter cannot exclude possible PE, will continue with heparin drip at this time. She is currently too unstable to try to get CTA. Consider additional imaging to exclude PE and de-escalate anticoagulation once able. Reported also history of CHF. NT proBNP is moderately elevated. Noted possible septic shock with lactic acidosis, lactic acid 6.1, received 1 L of fluid in route, however, with crackles on presentation with concern for fluid overload at this time will avoid giving 30 cc/kg resuscitation. Continue pressor support with Levophed. Blood cultures collected. Status: Acute (2) Shock: Initially concern for STEMI, possibility of cardiogenic shock, however, this appears to be less. STEMI alert was called off, no ST elevation noted on subsequent EKG. Reversal of transient widening of QRS. Initial troponin 61. Complete troponin EKG series. Assess TTE. Possible septic shock with pneumonia, daughter also reports history of recurrent UTI. Blood cultures collected. Continue antibiotic coverage. Discussed with daughter lower possibility but cannot exclude at this time PE. Continue anticoagulation for now until stabilizes somewhat further to be able to assess with CTA. Assess TTE. With history of sarcoidosis of the lung. Mild hyponatremia with normal potassium. I do see also past prescription of steroid. Requested serum cortisol. Will give stress dose steroid as well with suspicion of component of adrenal sufficiency. Status: Acute (3) Lactic acidosis: As above. Used to be on Metformin in the past, but no longer. Status: Acute (4) Pneumonia: Continue Zosyn, vancomycin. Possible component of aspiration. Check COVID-19. As above. Status: Acute (5) Abdominal distention: Daughter reports her mother always has a large abdomen, but feels perhaps abdomen could be more distended than usual. Acute abdominal series obtained. Not very stable to go to the CT at the moment. X-ray shows nondistended gas-filled loop of colon, otherwise abdomen largely gasless. Requesting limited ultrasound to assess for ascites given history of CHF, chronic abdominal distention. With significant lactic acidosis, consideration may be given to possible bowel ischemia, although daughter denies symptoms that would suggest bowel ischemia, although cannot exclude global hypoperfusion with hypotension. Currently would not be stable enough to proceed with surgery. Status: Acute (6) BRIGIDA (acute kidney injury): Possible BRIGIDA on CKD, versus CKD. Baseline creatinine currently is unknown. Creatinine at the moment is 1.6. With hypotension, shock, anticipate acute kidney injury. Iyer catheter had been placed. Additionally assessed by kidney ultrasound. Hold lisinopril. Monitor LAITH. Reassess renal function. Status: Acute (7) Elevated troponin: Cardiology evaluation appreciated. Initially concern for STEMI, possibility of cardiogenic shock, however, this appears to be less. STEMI alert was called off, no ST elevation noted on subsequent EKG. Reversal of transient widening of QRS. Initial troponin 61. Complete troponin EKG series. Assess TTE. Continue aspirin, Plavix with history of stenting. Beta-cate on hold. Continue statin. Status: Acute (8) DM type 2 (diabetes mellitus, type 2): Continue insulin glargine, decrease dose to 40 units at bedtime. Sliding scale. Status: Acute Plan Acute hypoxic respiratory failure -Secondary to aspiration pneumonia -Has a history of pulmonary sarcoidosis -History of COPD and MADAY -History of diastolic CHF Plan -Continue broad-spectrum antibiotic therapy vancomycin, Zosyn -Continue intubation, mechanical ventilation -Fentanyl, Versed for sedation -Minimize tidal volume, minimize FiO2 -Given elevated troponins, concern for possible pulmonary emboli, bilateral lower extremity ultrasound, heparin drip -DuoNeb, budesonide -Family wants to continue full code -Heparin for DVT prophylaxis -Protonix for GI prophylaxis -Once stable will do CTA of the chest, CT abdomen and Aspiration pneumonia -Antibiotics as above Septic shock -Maintain map in 65 -Continue vancomycin, Zosyn -Stress dose hydrocortisone -Levophed, vasopressin Acute kidney injury -Likely secondary to sepsis NSTEMI -Elevated troponins, positive delta -Likely second underlying sepsis, however cannot rule out underlying CAD given age, prior history of CAD status post emptying x3 -Continue aspirin, statin, Plavix, heparin drip -Echocardiogram -Cardiology on consult Type 2 diabetes mellitus -Continue insulin sliding scale, glargine History of thrombocytosis History of recurrent UTIs 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
[2021-12-18] MEDS: EPINEPHrine 0.1 mg/mL SYR 10 mL 1 MG IVP (14:00)
[2021-12-18] MEDS: EPINEPHrine 2.5 MG in sodium chloride 0.9% 250 ML 27.49 MG IV (14:12)
[2021-12-18] MEDS: sodium bicarbonate 8.4% 1 mEq/mL 50mL Syr 50 MEQ IVP (14:12)
--- NOTE | 2021-12-18 15:16 | ANES.PROC ---
Anesthesia Procedures Procedure/Date: 12/18/21 Arterial Line: Time Out Performed: Yes Consent: requested by attending/covering physician, from other (daughter), risks and benefits reviewed and patient agrees to proceed (daughter agrees to proceed) Size (Gauge): 20 Patient Tolerated Procedure: well Complications: none Additional Comments: After sterile prep, using sterile technique, and using real time US guidance for vessel selection an 20 g radial arterial was inserted with real time visualization of needle entry and real time visualization of catheter advancement. Tolerated well. 3 attempts, pressure held after unsuccessful attempt. No hematoma.
[2021-12-18 15:18] LABS: Partial Thromboplastin Time 157.2 SECONDS (23.9-36.7)
[2021-12-18] MEDS: norepinephrine 8 MG in dextrose 5 % 500 ML 190.5 MG IV (15:39)
[2021-12-18 15:59] LABS: Magnesium 4.3 mg/dL (1.7-2.3)
[2021-12-18] MEDS: piperacillin-tazobactam 3.375 GM in sodium chloride 0.9% (plus) 50 ML IV (16:12)
[2021-12-18] MEDS: norepinephrine 8 MG in dextrose 5 % 500 ML 133.35 MG IV (18:50)
[2021-12-18 19:06] LABS: Glucose Point of Care 343 mg/dL (70-110)
[2021-12-18 20:17] LABS: Partial Thromboplastin Time 51.1 SECONDS (23.9-36.7)
[2021-12-18] MEDS: EPINEPHrine 2.5 MG in sodium chloride 0.9% 250 ML 38.48 MG IV (20:42)
[2021-12-18 21:09] LABS: Glucose Point of Care 369 mg/dL (70-110)
[2021-12-18] MEDS: insulin glargine 100 units/1 mL 10 UNIT SUBCUT (21:09)
[2021-12-18] MEDS: atorvastatin 40 mg Tablet PO (21:09)
[2021-12-19] VITALS (48 sets, daily range): BP systolic 98–158; BP diastolic 35–113; PULSE 40–109; RESP 16–29; TEMP 38–38.5; O2SAT 93–100
[2021-12-19 00:20] LABS: Glucose Point of Care 345 mg/dL (70-110)
[2021-12-19] MEDS: insulin lispro 100 unit/1 mL SUBCUT ×2 (00:23→06:05)
[2021-12-19] MEDS: norepinephrine 8 MG in dextrose 5 % 500 ML 76.2 MG IV ×3 (00:27→14:00)
[2021-12-19 04:01] LABS: Basophils % 0.1 %; Eosinophils # 0.2 10^3/uL (0.0-0.8); Eosinophils % 0.3 %; Hemoglobin 9.4 g/dL (11.5-15.3); Lymphocytes % 1.4 %; Mean Corpuscular HGB Conc 32.4 g/dL (30.0-36.0); Mean Corpuscular Hemoglobin 26.9 pg (28.0-34.0); Mean Corpuscular Volume 83.1 fl (81-99); Mean Platelet Volume 9.5 fL (7.4-10.4); Monocytes # 2.1 10^3/uL (0.2-0.9); Monocytes % 2.9 %; Neutrophils # 67.14 10^3/uL (1.8-7.7); Nucleated Red Blood Cells % 0 %; Platelet Count 842 10^3/cmm (130-400); Red Blood Count 3.49 10^6/uL (4.1-5.3)
[2021-12-19] MEDS: EPINEPHrine 2.5 MG in sodium chloride 0.9% 250 ML 32.99 MG IV (04:02)
[2021-12-19] MEDS: acetaminophen 325 mg Tablet 650 MG PO ×2 (04:02→10:42)
[2021-12-19 04:28] LABS: NT Pro B Type Natriuretic Pept 20087 pg/mL (0-450); Procalcitonin 34.78 ng/mL (0-0.5); Thyroid Stimulating Hormone 1.64 uIU/mL (0.27-4.20)
[2021-12-19 04:40] LABS: Slide Review Slide Review Perform
[2021-12-19 04:42] LABS: White Blood Count 72.9 10^3/uL (4.0-10.0)
[2021-12-19 04:45] LABS: Alanine Aminotransferase 36 U/L (0-33); Albumin Level 2.7 g/dL (3.5-5.2); Alkaline Phosphatase 105 IU/L (35-105); Anion Gap 20.9 (5-19); Aspartate Amino Transferase 65 U/L (0-32); Blood Urea Nitrogen 34 mg/dL (8-23); C Reactive Protein 258.1 mg/L (0.0-4.9); Calcium 7.5 mg/dL (8.5-10.5); Carbon Dioxide 21 mmol/L (22-29); Chloride 86 mmol/L (98-107); Globulin 2.4 g/dL (1.3-4.6); Glucose 410 mg/dL (65-115); Magnesium 3.8 mg/dL (1.7-2.3); Osmolality Calculated 281 mOsm/kg (285-295); Phosphorus 3.4 mg/dL (2.5-4.5); Potassium 4.9 mmol/L (3.5-5.1); Sodium 123 mmol/L (136-145); Total Bilirubin 0.4 mg/dL (0.15-1.2); Total Protein 5.1 g/dL (6.6-8.7)
[2021-12-19 04:47] LABS: Creatine Phosphokinase 962 U/L (26-192)
[2021-12-19 04:48] LABS: D Dimer 10.75 ug/mIFEU (0-0.59); INR 1.26 (0.8-1.2)
[2021-12-19 04:49] LABS: Partial Thromboplastin Time > 250.0 SECONDS (23.9-36.7)
[2021-12-19 04:51] LABS: ABG PCO2 27.1 mmHg (35-45); ABG PH Result 7.44 (7.35-7.45); Arterial Blood Gas Hematocrit 34.2 % (37-47); Base Excess ABG -4.8 mmol/L (-2.0-2.0); Blood Gas Sample Site Radial, left; Blood Gas Sample Type Arterial; HCO3 ABG 18.3 mmol/L (22-26); PO2 ABG 82.5 mmHg (80.0-100.0)
[2021-12-19 04:54] LABS: Oxygen Device VENT
[2021-12-19 05:58] LABS: Glucose Point of Care 403 mg/dL (70-110)
[2021-12-19] MEDS: levothyroxine 25 mcg Tablet PO (06:05)
[2021-12-19 06:45] LABS: LAB Peripheral Smear Sent for Review
--- NOTE | 2021-12-19 07:00 | XRR_ITS ---
PROCEDURE INFORMATION: Exam: XR Chest Exam date and time: 12/19/2021 5:03 AM Age: 86 years old Clinical indication: Dyspnea; Additional info: SOB TECHNIQUE: Imaging protocol: XR of the chest. Views: 1 view. COMPARISON: CR (CHEST, ) 12/18/2021 8:16 AM FINDINGS: Tubes, catheters and devices: An endotracheal tube is placed with its tip 3.1 cm from the leslie. An orogastric tube is present with its tip at least in the mid stomach. A right internal jugular vein catheter is placed with its tip at the level of the azygocaval junction. Lungs: There is increasing consolidation seen in the perihilar regions bilaterally with increased strandy and patchy opacities present in the infrahilar regions, findings compatible with a bilateral perihilar and infrahilar pneumonia. Pleural spaces: Unremarkable. No pleural effusion. No pneumothorax. Heart/Mediastinum: Calcifications are seen in the mitral valve annulus. Bones/joints: Unremarkable. XR/XR chest 1V portable [id number] IMPRESSION: 1. Increasing consolidation in the perihilar and infrahilar regions compatible with bilateral basilar pneumonia. 2. Stable placement of an endotracheal tube with its tip 3.1 cm from the leslie.
[2021-12-19] MEDS: budesonide 0.5 mg/2 mL Neb INHALATION ×2 (07:44→20:04)
[2021-12-19] MEDS: ipratropium-albuterol 3 mL Neb INHALATION ×2 (07:44→20:04)
--- NOTE | 2021-12-19 08:45 | P.PN_ITS ---
Subjective Subjective: Patient remains intubated and sedated on IV fentanyl and midazolam. She is also on vasopressin and norepinephrine. Blood pressures have been stable. Hemoglobin has been stable. Her white blood cell count has jumped to 72.9. Her lactate remains high at 5.0. Baseline troponin was 61, 120-minute troponin was 111 and a 6-hour troponin was 223. Her BNP is over 20,000. Echo was done but I have not had a chance to read this yet. Ultrasound of the lower extremity veins showed no DVT. Renal ultrasound was unremarkable but a poor quality study. Chest x-ray show increasing consolidation with bibasilar pneumonia. EKGs did not show any evidence of ST segment elevation. Vitals/I&O/Wt Last Vital Signs Temp 100.8 F H 12/19/21 08:00 Pulse 108 H 12/19/21 08:00 Resp 22 H 12/19/21 07:35 BP 122/50 12/19/21 08:00 Pulse Ox 94 12/19/21 08:00 12/18/21 12/19/21 12/19/21 22:59 06:59 14:59 Intake Total 1829.024 / 2921.791 830.306 / 3752.097 654.118 / 654.118 Output Total 575 / 575 575 / 1150 Balance 1254.024 / 2346.791 255.306 / 2602.097 654.118 / 654.118 Weight last 48 hrs Weight 211 lb 9.6 oz Weight 200 lb Physical Exam Narrative: GENERAL: In general she is intubated and sedated HEENT: Exam within normal limits. NECK: Supple without jugular vein distention. The carotid upstroke is normal without bruits. BACK: Exam normal. LUNGS: Clear. HEART: Regular rate and rhythm. ABDOMEN: Benign without organomegaly or tenderness. EXTREMITIES: No edema. NEUROLOGIC: Exam not done SKIN: Unremarkable. Data : 12/19/21 02:50 12/19/21 02:50 Micro: Microbiology 12/18/21 07:10 Urine Culture - Preliminary Urine,Clean Catch Gram Negative Rods 12/18/21 04:33 Blood Culture - Preliminary Blood NEGATIVE TO DATE 12/18/21 04:59 Blood Culture - Preliminary Blood NEGATIVE TO DATE A&P Assessment and plan (1) Abdominal distention: Status: Acute (2) Lactic acidosis: Status: Acute (3) BRIGIDA (acute kidney injury): Status: Acute (4) Pneumonia: Status: Acute (5) Shock: Status: Acute (6) Acute and chronic respiratory failure with hypoxia: Status: Acute (7) Respiratory failure: Status: Acute (8) DM type 2 (diabetes mellitus, type 2): Status: Acute (9) COPD (chronic obstructive pulmonary disease): Status: Acute (10) CAD (coronary artery disease): Status: Acute (11) Elevated troponin: Status: Acute Plan I think the elevated troponins are secondary to the other underlying illness which is likely pneumonia with septic shock and high lactic acid. She remains ventilator dependent. We will continue to follow along. There is certainly no indication for any cardiac intervention at this time. I will look at the echo today. We will follow along. Attestations Medical Necessity Statement*: Needs continued hospitalization for management of pneumonia, septic shock and acute renal insufficiency. Procedures Arterial Line Size (Gauge): 20 Coding Level of Care Code Established Pt Acute Service Supervisor for [facility] Patient Type Established History Comprehensive Exam Comprehensive Medical Decision Making High Complexity Diagnoses Abdominal distention R14.0 Lactic acidosis E87.2 BRIGIDA (acute kidney injury) N17.9 Pneumonia J18.9 Shock R57.9 Acute and chronic respiratory failure with hypoxia J96.21 Respiratory failure J96.90 DM type 2 (diabetes mellitus, type 2) E11.9 COPD (chronic obstructive pulmonary disease) J44.9 CAD (coronary artery disease) I25.10 Elevated troponin R77.8 Time Spent (min) 30
--- NOTE | 2021-12-19 08:52 | XRR_ITS ---
PROCEDURE INFORMATION: Exam: XR Abdomen Exam date and time: 12/19/2021 9:36 AM Age: 86 years old Clinical indication: Abdominal pain; Additional info: Recheck TECHNIQUE: Imaging protocol: XR of the abdomen. Views: Frontal supine view of the abdomen. 1 View. COMPARISON: CR (ABDOMEN, ) 12/18/2021 5:41 AM FINDINGS: Gastrointestinal tract: There is a dilated loop of gas-filled bowel in the right abdomen favored to be due to colon. There is a large amount of stool in the rectum and distal colon. Bones/joints: No acute osseous abnormality. XR/XR KUB portable [id number] IMPRESSION: Large amount of stool in the rectum and distal colon which may be causing a degree of colonic obstruction. This could be clarified with CT ABDOMEN/PELVIS, as clinically directed.
[2021-12-19] MEDS: aspirin 325 mg Tablet PO (09:02)
[2021-12-19] MEDS: pantoprazole 40 mg SDV IVP (09:02)
[2021-12-19] MEDS: clopidogrel 75 mg Tablet PO (09:02)
--- NOTE | 2021-12-19 09:25 | PM.CONSULT ---
Providers/Reason For Consult Consulting Physician/Specialty*: sergio lopes md / telenephrology Reason for Consult*: BRIGIDA, met acidosis Requesting Physician: Dr Libra Correa Attending Physician: See Correa MD Primary Care Provider: Hu Del Rosario History of Present Illness History of Present Illness Lety Rogers is a 86 year old female - all hx per xhart- pt intubated and sedated h/o CAD, CHF, sarcoidosis, Leukemia ?, COPD, DM thype 2, hypothyroidism. Pt was admitted yesterday for weakness, vomiting. ?In ER abnormal EKG and developed a L BBB. Pt was hypoxic, hypotensive in ER and intubated. Pt is now oliguric, BRIGIDA, on 3 pressors, intubated, and acidotic. renal was called to consult. Review of Systems Narrative: unable to obtain due to poor MS Medications/Allergies Home Medications Medication Instructions Recorded Confirmed Last Taken Type albuterol sulfate 90 mcg/actuation 1 puff INHALATION BID PRN 12/18/21 12/18/21 Unknown History aerosol inhaler aspirin 81 mg chewable tablet 81 mg PO DAILY 12/18/21 12/18/21 Unknown History atorvastatin 80 mg tablet 80 mg PO DAILY 12/18/21 12/18/21 Unknown History baclofen 10 mg tablet 10 mg PO TID PRN 12/18/21 12/18/21 Unknown History clopidogrel 75 mg tablet 75 mg PO DAILY 12/18/21 12/18/21 Unknown History famotidine 20 mg tablet 20 mg PO BID 12/18/21 12/18/21 Unknown History fluticasone 250 mcg-salmeterol 50 1 inh INHALATION BID 12/18/21 12/18/21 Unknown History mcg/dose blistr powdr for inhalation fluticasone propionate 50 2 spray INTRANASAL BID 12/18/21 12/18/21 Unknown History mcg/actuation nasal spray,suspension furosemide 20 mg tablet 20 mg PO DAILY 12/18/21 12/18/21 Unknown History insulin glargine 100 unit/mL (3 55 unit SUBCUT BEDTIME 12/18/21 12/18/21 Unknown History mL) subcutaneous pen (Basaglar KwikPen U-100 Insulin) ipratropium 20 mcg-albuterol 100 1 puff INHALATION Q6H PRN 12/18/21 12/18/21 Unknown History mcg/actuation mist for inhalation (Combivent Respimat) isosorbide mononitrate 30 mg 30 mg PO DAILY 12/18/21 12/18/21 Unknown History tablet,extended release 24 hr levetiracetam 500 mg tablet 500 mg PO BID 12/18/21 12/18/21 Unknown History levothyroxine 25 mcg tablet 25 mcg PO DAILY 12/18/21 12/18/21 Unknown History lisinopril 40 mg tablet 40 mg PO DAILY 12/18/21 12/18/21 Unknown History metoprolol succinate 25 mg 25 mg PO DAILY 12/18/21 12/18/21 Unknown History tablet,extended release 24 hr multivitamin 1 tab PO DAILY 12/18/21 12/18/21 Unknown History venlafaxine 37.5 mg tablet 37.5 mg PO TID 12/18/21 12/18/21 Unknown History Allergies Allergy/AdvReac Type Severity Reaction Status Date / Time ciprofloxacin Allergy Unknown Verified 12/18/21 03:34 metformin Allergy ADR-Headach Verified 12/18/21 03:34 e morphine Allergy ALGY-Swell Verified 12/18/21 03:34 Lip/Tongue/Throat nitrofurantoin Allergy ADR-Vomitin Verified 12/18/21 03:34 g rofecoxib Allergy ALGY-Hives Verified 12/18/21 03:34 Sulfa (Sulfonamide Allergy ADR-Vomitin Verified 12/18/21 03:34 Antibiotics) g Current Medications Generic Name Dose Route Start Last Admin Trade Name Freq PRN Reason Stop Dose Admin Acetaminophen 650 mg 12/18/21 07:05 12/19/21 04:02 Acetaminophen 325 Mg Tablet PO 650 mg Q6H PRN Administration Mild/Mod Pain Or Temp >/= 101 Albuterol/Ipratropium 3 ml 12/18/21 07:05 12/19/21 07:44 Ipratropium-Albuterol 3 Ml Neb INHALATION 3 ml Q4H.RESPIRATORY PRN Administration SHORTNESS OF BREATH Aspirin 325 mg 12/18/21 09:00 12/19/21 09:02 Aspirin 325 Mg Tablet PO 325 mg DAILY MOHSEN Administration Atorvastatin Calcium 40 mg 12/18/21 21:00 12/18/21 21:09 Atorvastatin 40 Mg Tablet PO 40 mg BEDTIME MOHSEN Administration Budesonide 0.5 mg 12/18/21 08:00 12/19/21 07:44 Budesonide 0.5 Mg/2 Ml Neb INHALATION 0.5 mg BID.RESPIRATORY MOHSEN Administration Clopidogrel Bisulfate 75 mg 12/18/21 09:00 12/19/21 09:02 Clopidogrel 75 Mg Tablet PO 75 mg DAILY MOHSEN Administration Hydrocortisone Sodium Succinate 100 mg 12/18/21 10:30 12/18/21 22:39 Hydrocortisone 100 Mg/2 Ml Sdv IVP 100 mg Q12H MOHSEN Administration Midazolam HCl 100 mg/ Sodium 100 mls @ 0 mls/hr 12/18/21 04:15 12/18/21 14:30 Chloride IV 1 mg/hr .Q0M MOHSEN 1 mls/hr Titration Protocol Per Protocol Fentanyl 2,500 mcg/ Sodium 250 mls @ 0 mls/hr 12/18/21 04:15 12/18/21 10:52 Chloride IV 100 mcg/hr .Q0M MOHSEN 10 mls/hr Titration Protocol Per Protocol Norepinephrine Bitartrate 4 mg 254 mls @ 0 mls/hr 12/18/21 05:15 12/19/21 00:27 / Dextrose IV Infused .Q0M MOHSEN Titration Protocol Per Protocol Heparin Sodium/Sodium Chloride 25,000 unit in 500 mls @ 0 mls/hr 12/18/21 07:05 12/19/21 05:10 Heparin Drip IV 0 unit/kg/hr .Q0M MOHSEN 0 mls/hr Titration Protocol Per Protocol Vasopressin 100 unit/ Sodium 100 mls @ 0 mls/hr 12/18/21 09:02 12/19/21 09:08 Chloride IV 0.06 unit/min .Q0M PRN 3.6 mls/hr HYPOTENSION Titration Protocol Per Protocol Norepinephrine Bitartrate 8 mg 508 mls @ 0 mls/hr 12/18/21 10:30 12/19/21 07:18 / Dextrose IV 20 mcg/min .Q0M MOHSEN 76.2 mls/hr Administration Protocol Per Protocol Epinephrine HCl 2.5 mg/ Sodium 252.5 mls @ 0 mls/hr 12/18/21 14:15 12/19/21 07:15 Chloride IV 0.08 mcg/kg/min .Q0M MOHSEN 42 mls/hr Titration Protocol Per Protocol Imipenem/Cilastatin Sodium 500 100 mls @ 200 mls/hr 12/18/21 18:00 12/19/21 06:04 mg/ Sodium Chloride IV 200 mls/hr Q6H MOHSEN Administration Protocol Levothyroxine Sodium 25 mcg 12/19/21 06:00 12/19/21 06:05 Levothyroxine 25 Mcg Tablet PO 25 mcg QAM MOHSEN Administration Pantoprazole Sodium 40 mg 12/18/21 08:00 12/19/21 09:02 Pantoprazole 40 Mg Sdv IVP 40 mg Q24H MOHSEN Administration PFSH Acute PFSH: Medical History CAD (coronary artery disease) CKD (chronic kidney disease) Congestive heart failure COPD (chronic obstructive pulmonary disease) DM type 2 (diabetes mellitus, type 2) Dyslipidemia Frequent UTI Hypothyroidism Intolerance of continuous positive airway pressure (CPAP) ventilation Occluded coronary artery stent MADAY (obstructive sleep apnea) Sarcoidosis Surgical History H/O Spinal surgery H/O: hysterectomy History of cholecystectomy Hx of appendectomy Stented coronary artery Family History Other CAD (coronary artery disease) DM type 2 (diabetes mellitus, type 2) Social History Smoking and tobacco status: never smoked Lives independently: No Household members: family Vitals/I&O/Wt Last Vital Signs Temp 100.8 F H 12/19/21 08:00 Pulse 108 H 12/19/21 08:00 Resp 22 H 12/19/21 07:35 BP 122/50 12/19/21 08:00 Pulse Ox 94 12/19/21 08:00 12/18/21 12/19/21 12/19/21 22:59 06:59 14:59 Intake Total 1829.024 / 2921.791 830.306 / 3752.097 658.968 / 658.968 Output Total 575 / 575 575 / 1150 Balance 1254.024 / 2346.791 255.306 / 2602.097 658.968 / 658.968 Weight last 48 hrs Weight 95.98 kg Weight 90.718 kg Physical Exam Narrative: febrile, intubated fio2 =50%, TV 400, PEEP 5 pressors include levophed, epi, and vasopressin heent- nc/at lungs clear heart tachy abd tender, guarding, poor air movement ext no pitting edema Data : 12/19/21 02:50 12/19/21 02:50 Micro: Microbiology 12/18/21 07:10 Urine Culture - Preliminary Urine,Clean Catch Gram Negative Rods 12/18/21 04:33 Blood Culture - Preliminary Blood NEGATIVE TO DATE 12/18/21 04:59 Blood Culture - Preliminary Blood NEGATIVE TO DATE A&P Assessment and plan (1) BRIGIDA (acute kidney injury): 86 yr old female 1. BRIGIDA from septic shock Q if has CKD- risk factors include- age, htn, dm -renal us w/o hydronephrosis -no acute indication for dialysis, and pt is too ill to tolerate dialysis -fluids if okay w/ Cardiology 2. Septic shock on broad spectrum abx -severe leukocytosis 3. lactic acidosis-I am concerned about an acute abdominal process AG of 16 - from lactate, sepsis, BRIGIDA 4. resp alkalosis -likely from vent and discomfort 5. hyponatremia- normal tsh, cortisol 31 -urine lytes -from BRIGIDA, CHF 6. CHF- BNP 7. Q uti- on abx 8. 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
[2021-12-19 09:50] LABS: Hematocrit 29.3 % (37.0-47.0); Hemoglobin 9.1 g/dL (11.5-15.3); Lymphocytes # 1.3 10^3/uL (0.8-4.8); Lymphocytes % 1.8 %; Mean Corpuscular HGB Conc 31.1 g/dL (30.0-36.0); Mean Corpuscular Hemoglobin 26.1 pg (28.0-34.0); Mean Platelet Volume 9.5 fL (7.4-10.4); Monocytes # 1.9 10^3/uL (0.2-0.9); Monocytes % 2.6 %; Neutrophils # 66.31 10^3/uL (1.8-7.7); Neutrophils % 92.3 %; Nucleated Red Blood Cells % 0 %; Platelet Count 818 10^3/cmm (130-400); Red Blood Count 3.49 10^6/uL (4.1-5.3)
[2021-12-19 09:56] LABS: White Blood Count 71.8 10^3/uL (4.0-10.0)
[2021-12-19 10:03] LABS: Alanine Aminotransferase 37 U/L (0-33); Albumin Level 2.6 g/dL (3.5-5.2); Alkaline Phosphatase 120 IU/L (35-105); Anion Gap 20.7 (5-19); Aspartate Amino Transferase 65 U/L (0-32); Blood Urea Nitrogen 33 mg/dL (8-23); Calcium 7.2 mg/dL (8.5-10.5); Carbon Dioxide 21 mmol/L (22-29); Chloride 87 mmol/L (98-107); Globulin 2.6 g/dL (1.3-4.6); Glucose 380 mg/dL (65-115); Osmolality Calculated 281 mOsm/kg (285-295); Potassium 4.7 mmol/L (3.5-5.1); Sodium 124 mmol/L (136-145); Total Bilirubin 0.3 mg/dL (0.15-1.2); Total Protein 5.2 g/dL (6.6-8.7)
[2021-12-19] MEDS: hydrocortisone 100 mg/2 mL SDV IVP (10:11)
[2021-12-19] MEDS: metroNIDAZOLE IV 500 MG/100 ML PREMIX 100 MG IV ×2 (10:12→16:30)
[2021-12-19] MEDS: lactated ringers 1,000 ML 75 ML IV (10:40)
[2021-12-19 10:41] LABS: Partial Thromboplastin Time 88.1 SECONDS (23.9-36.7)
[2021-12-19] MEDS: EPINEPHrine 2.5 MG in sodium chloride 0.9% 250 ML 42 MG IV (10:42)
[2021-12-19] MEDS: insulin regular-human 250 UNIT in sodium chloride 0.9% 250 ML 8.4 UNIT IV (13:19)
--- NOTE | 2021-12-19 15:29 | P.PN_ITS ---
Subjective Subjective: Patient was seen this morning, remains critically ill, significant leukocytosis 71.8, ventilator dependence 50% FiO2, on 3 pressors, including epi drip, urine output has declined, evidence of multiorgan failure, abdomen is distended, patient winces in pain when pressed, as guarding, has rebound, is rigid, concerning for significant abdominal process versus a glides versus C. difficile colitis versus ileus versus obstruction, however patient is too clinically unstable for a CAT scan, too clinically unstable for any surgical intervention, currently she has a high risk of morbidity mortality, high risk of cardiac I spoke to patient's daughter this afternoon, discussed my concerns about her abdominal process going on, her significant leukocytosis, septic shock, multiorgan failure, evidence of DIC, for now patient's daughter wants us to continue interventions, she will talk to her brother about goals of care, I advised that currently given her abdominal distention and my concerns of acute abdominal process she is too unstable to undergo any surgical invention, and she is to unstable to do even a CAT scan, I will do my best and medically manage her, but she might succumb to whatever abdominal process is going on in the next 24 to 48 hours if I am not able to get any more information or I cannot safely intervene surgically, she voiced understanding, all questions answered Vitals/I&O/Wt Last Vital Signs Temp 101.2 F H 12/19/21 12:00 Pulse 105 H 12/19/21 14:00 Resp 24 H 12/19/21 15:05 BP 129/106 12/19/21 11:00 Pulse Ox 99 12/19/21 15:05 12/19/21 12/19/21 12/19/21 06:59 14:59 22:59 Intake Total 830.306 / 3752.097 903.868 / 903.868 Output Total 575 / 1150 Balance 255.306 / 2602.097 903.868 / 903.868 Weight last 48 hrs Weight 95.98 kg Weight 90.718 kg Physical Exam Const: COMMON NORMALS: no acute distress OTHER: Intubated, sedated on mechanical ventilation OG tube in place endotracheal tube in place Central line in place, right, Art line in place Resp: COMMON NORMALS: normal respiratory effort, No retractions and No use of accessory muscles AUSCULTATION: crackles Cardio: COMMON NORMALS: regular rate, regular rhythm, S1 normal heart sound present and S2 normal heart sound present RATE: regular rate RHYTHM: regular rhythm HEART SOUNDS: S1 normal heart sound present and S2 normal heart sound present GI: INSPECTION: Yes abdominal distension AUSCULTATION: Yes Absent bowel sounds PALPATION: Yes Firmness to palpation present (GI), Yes Tenderness to palpation present (GI), Yes Guarding due to palpation present (GI) and Yes Rigid due to palpation Extremity: NARRATIVE EXTREMITY EXAM: 1+ pitting edema Psych: COMMON NORMALS: mental status grossly normal Data : 12/19/21 09:02 12/19/21 09:02 Micro: Microbiology 12/18/21 07:10 Urine Culture - Preliminary Urine,Clean Catch Gram Negative Rods 12/18/21 04:33 Blood Culture - Preliminary Blood NEGATIVE TO DATE 12/18/21 04:59 Blood Culture - Preliminary Blood NEGATIVE TO DATE A&P Assessment and plan (1) Acute and chronic respiratory failure with hypoxia: Requiring 15 L nonrebreather on presentation, still intubated, requiring high percent FiO2 and with that saturating 85-95%. Currently saturation slightly better up to 100%. Left lower lobe pneumonia noted. Started on empiric antibiotics with Zosyn, vancomycin. Daughter reports multiple episodes of vomiting, discussed possibility of aspiration component. Daughter reports low- grade temp earlier in the week on Monday. Will check COVID-19. Discussed with her daughter cannot exclude possible PE, will continue with heparin drip at this time. She is currently too unstable to try to get CTA. Consider additional imaging to exclude PE and de-escalate anticoagulation once able. Reported also history of CHF. NT proBNP is moderately elevated. Noted possible septic shock with lactic acidosis, lactic acid 6.1, received 1 L of fluid in route, however, with crackles on presentation with concern for fluid overload at this time will avoid giving 30 cc/kg resuscitation. Continue pressor support with Levophed. Blood cultures collected. Status: Acute (2) Shock: Initially concern for STEMI, possibility of cardiogenic shock, however, this appears to be less. STEMI alert was called off, no ST elevation noted on subsequent EKG. Reversal of transient widening of QRS. Initial troponin 61. Complete troponin EKG series. Assess TTE. Possible septic shock with pneumonia, daughter also reports history of recurrent UTI. Blood cultures collected. Continue antibiotic coverage. Discussed with daughter lower possibility but cannot exclude at this time PE. Continue anticoagulation for now until stabilizes somewhat further to be able to assess with CTA. Assess TTE. With history of sarcoidosis of the lung. Mild hyponatremia with normal potassium. I do see also past prescription of steroid. Requested serum cortisol. Will give stress dose steroid as well with suspicion of component of adrenal sufficiency. Status: Acute (3) Lactic acidosis: As above. Used to be on Metformin in the past, but no longer. Status: Acute (4) Pneumonia: Continue Zosyn, vancomycin. Possible component of aspiration. Check COVID-19. As above. Status: Acute (5) Abdominal distention: Daughter reports her mother always has a large abdomen, but feels perhaps abdomen could be more distended than usual. Acute abdominal series obtained. Not very stable to go to the CT at the moment. X-ray shows nondistended gas-filled loop of colon, otherwise abdomen largely gasless. Requesting limited ultrasound to assess for ascites given history of CHF, chronic abdominal distention. With significant lactic acidosis, consideration may be given to possible bowel ischemia, although daughter denies symptoms that would suggest bowel ischemia, although cannot exclude global hypoperfusion with hypotension. Currently would not be stable enough to proceed with surgery. Status: Acute (6) BRIGIDA (acute kidney injury): Possible BRIGIDA on CKD, versus CKD. Baseline creatinine currently is unknown. Creatinine at the moment is 1.6. With hypotension, shock, anticipate acute kidney injury. Iyer catheter had been placed. Additionally assessed by kidney ultrasound. Hold lisinopril. Monitor LAITH. Reassess renal function. Status: Acute (7) Elevated troponin: Cardiology evaluation appreciated. Initially concern for STEMI, possibility of cardiogenic shock, however, this appears to be less. STEMI alert was called off, no ST elevation noted on subsequent EKG. Reversal of transient widening of QRS. Initial troponin 61. Complete troponin EKG series. Assess TTE. Continue aspirin, Plavix with history of stenting. Beta-cate on hold. Continue statin. Status: Acute (8) DM type 2 (diabetes mellitus, type 2): Continue insulin glargine, decrease dose to 40 units at bedtime. Sliding scale. Status: Acute (9) Acute abdomen: Status: Acute (10) Leukocytosis: Status: Acute Plan Acute abdominal process -Concerning for possible perforation versus ileus versus a glides versus obstruction versus C. difficile colitis -X-ray showing colonic obstruction -Abdomen distended, has guarding,, has rebound, has rigidity -Clinically unstable to undergo CT scanning -Clinically unstable to undergo surgical intervention -Start Flagyl, p.o. vancomycin for possible C. difficile colitis -Correct electrolytes -Serial abdominal exams, serial KUBs -Consult surgical service -Status is critical, prognosis poor DIC, secondary to septic shock Neutrophilic leukocytosis, secondary septic shock, possible C. difficile colitis? Hyponatremia, secondary to acute renal failure, Acute hypoxic respiratory failure -Secondary to aspiration pneumonia -Has a history of pulmonary sarcoidosis -History of COPD and MADAY -History of diastolic CHF Plan -Continue broad-spectrum antibiotic therapy vancomycin, Primaxin, Flagyl -Continue intubation, mechanical ventilation -Fentanyl, Versed for sedation -Minimize tidal volume, minimize FiO2 -Given elevated troponins, concern for possible pulmonary emboli, bilateral lower extremity ultrasound, heparin drip -DuoNeb, budesonide -Family wants to continue full code -Heparin for DVT prophylaxis -Protonix for GI prophylaxis -Once stable will do CTA of the chest, CT abdomen and Aspiration pneumonia -Antibiotics as above Septic shock -Maintain map in 65 -Continue vancomycin, Zosyn -Stress dose hydrocortisone -Levophed, vasopressin, epi drip Acute kidney injury -Likely secondary to sepsis -Acute renal failure, dropping urine output -Consult nephrology service NSTEMI -Elevated troponins, positive delta -Likely second underlying sepsis, however cannot rule out underlying CAD given age, prior history of CAD status post emptying x3 -Continue aspirin, statin, Plavix, heparin drip -Echocardiogram -Cardiology on consult Type 2 diabetes mellitus -Start insulin drip History of thrombocytosis History of recurrent UTIs 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
[2021-12-19] MEDS: heparin drip 25,000 UNIT/500 ML PREMIX 24 UNIT IV (16:25)
--- NOTE | 2021-12-19 17:14 | XRR_ITS ---
PROCEDURE INFORMATION: Exam: XR Chest Exam date and time: 12/19/2021 5:24 PM Age: 86 years old Clinical indication: Other vascular access device placement or adjustment; Central line, non-tunnelled; Patient HX: R triple lumen placement; Additional info: Central line placement TECHNIQUE: Imaging protocol: XR of the chest. Views: 1 view. COMPARISON: CR (CHEST, ) 12/19/2021 5:03 AM FINDINGS: Tubes, catheters and devices: Right central venous catheter tip extending across the right atrium into the inferior vena cava. Endotracheal tube tip in place 4.1 cm above the leslie. Enteric tube tip extending below the left diaphragm off the field of view. Lungs: Bilateral hilar to lower lobe airspace opacities again seen Pleural spaces: Unremarkable. No pleural effusion. No pneumothorax. Heart/Mediastinum: Unremarkable. No cardiomegaly. Bones/joints: Unremarkable. XR/XR chest 1V portable [id number] IMPRESSION: 1. Right central venous catheter tip extending across the right atrium into the inferior vena cava. 2. Endotracheal tube tip in place 4.1 cm above the leslie. 3. Enteric tube tip extending below the left diaphragm off the field of view. 4. Bilateral hilar to lower lobe airspace opacities again seen
[2021-12-19 17:18] LABS: Alanine Aminotransferase 37 U/L (0-33); Albumin Level 2.5 g/dL (3.5-5.2); Alkaline Phosphatase 107 IU/L (35-105); Anion Gap 17.9 (5-19); Aspartate Amino Transferase 63 U/L (0-32); Blood Urea Nitrogen 32 mg/dL (8-23); Carbon Dioxide 20 mmol/L (22-29); Chloride 89 mmol/L (98-107); Globulin 2.3 g/dL (1.3-4.6); Glucose 211 mg/dL (65-115); Osmolality Calculated 269 mOsm/kg (285-295); Potassium 3.9 mmol/L (3.5-5.1); Sodium 123 mmol/L (136-145); Total Bilirubin 0.3 mg/dL (0.15-1.2); Total Protein 4.8 g/dL (6.6-8.7)
[2021-12-19 17:34] LABS: Partial Thromboplastin Time 192.4 SECONDS (23.9-36.7)
--- NOTE | 2021-12-19 17:35 | PM.ACPR ---
Acute Procedures Arterial Line: Size (Gauge): 20 Central Line Placement: Right IJ: Time out performed: Yes Patient placed on monitor/pulse ox: Yes MD prep: mask, gown and gloves Central line prep: Chlorhexidine scrub Local anesthesia used: lidocaine 1% Ultrasound used for placement: Yes Central line lumen inserted: triple Post procedure: sutured in place, good blood return, all ports aspirated, flushed, capped and sterile dressing applied Post procedure x-ray: tip of catheter in good position and no pneumothorax seen Patient tolerated procedure: well and no complications Complications: none Additional comments: Critical care Time 45 Mins The high probability of a clinically significant, sudden or life threatening deterioration of the patient's [] system(s) required my full and direct attention, intervention and personal management. The critical care time is as shown. This time is in addition to time spent performing any reported procedures but includes the following: [x] Data and vital sign review and interpretation [x] Patient assessment, examination and intervention [x] Documentation [x] Medication orders and management
--- NOTE | 2021-12-19 18:04 | PC.NURSE ---
This nurse was doing line care on patient when this nurse noticed there was no sutures on central line. Dressing was being changed when this nurse noticed central line was laying in bed. Dr. Correa was made aware. Dr. Herman on unit and placed another central line in right IJ.
[2021-12-19 18:26] LABS: Glucose Point of Care 204 mg/dL (70-110)
[2021-12-19 18:57] LABS: Glucose Point of Care 263 mg/dL (70-110)
[2021-12-19 18:57] LABS: Glucose Point of Care 340 mg/dL (70-110)
[2021-12-19 18:57] LABS: Glucose Point of Care 325 mg/dL (70-110)
[2021-12-19 19:39] LABS: Glucose Point of Care 171 mg/dL (70-110)
[2021-12-19] MEDS: EPINEPHrine 2.5 MG in sodium chloride 0.9% 250 ML 36 MG IV (20:33)
[2021-12-19 20:41] LABS: Glucose Point of Care 154 mg/dL (70-110)
[2021-12-19 21:04] LABS: Partial Thromboplastin Time 112.9 SECONDS (23.9-36.7)
[2021-12-19] MEDS: atorvastatin 40 mg Tablet PO (21:10)
[2021-12-19] MEDS: norepinephrine 8 MG in dextrose 5 % 500 ML 83.82 MG IV (22:34)
[2021-12-19 23:34] LABS: Potassium, Radom Urine 50 mmol/L; Urine Creatinine 35 mg/dL (28-217); Urine Random Chloride 92 mmol/L; Urine Random Sodium 64 mmol/L
[2021-12-19 23:48] LABS: Glucose Point of Care 114 mg/dL (70-110)
[2021-12-19 23:48] LABS: Glucose Point of Care 122 mg/dL (70-110)
[2021-12-19 23:48] LABS: Glucose Point of Care 105 mg/dL (70-110)
[2021-12-19 23:48] LABS: Glucose Point of Care 128 mg/dL (70-110)
[2021-12-20] VITALS (57 sets, daily range): BP systolic 126–154; BP diastolic 35–113; PULSE 77–120; RESP 23–30; TEMP 38.4–38.6; O2SAT 80–99
[2021-12-20 00:36] LABS: Glucose Point of Care 130 mg/dL (70-110)
[2021-12-20 01:13] LABS: Partial Thromboplastin Time 56.2 SECONDS (23.9-36.7)
[2021-12-20] MEDS: lactated ringers 1,000 ML 75 ML IV (01:15)
[2021-12-20] MEDS: metroNIDAZOLE IV 500 MG/100 ML PREMIX 100 MG IV ×2 (01:20→09:04)
[2021-12-20] MEDS: EPINEPHrine 2.5 MG in sodium chloride 0.9% 250 ML 60 MG IV (01:20)
[2021-12-20] MEDS: acetaminophen 325 mg Tablet 650 MG PO (01:22)
[2021-12-20 01:33] LABS: Glucose Point of Care 145 mg/dL (70-110)
[2021-12-20 02:36] LABS: Glucose Point of Care 155 mg/dL (70-110)
[2021-12-20 03:01] LABS: Eosinophils # 0.1 10^3/uL (0.0-0.8); Eosinophils % 0.2 %; Hematocrit 27.2 % (37.0-47.0); Hemoglobin 8.8 g/dL (11.5-15.3); Lymphocytes # 1.4 10^3/uL (0.8-4.8); Lymphocytes % 2.1 %; Mean Corpuscular HGB Conc 32.4 g/dL (30.0-36.0); Mean Corpuscular Hemoglobin 26.7 pg (28.0-34.0); Mean Corpuscular Volume 82.4 fl (81-99); Mean Platelet Volume 9.5 fL (7.4-10.4); Monocytes # 2.2 10^3/uL (0.2-0.9); Monocytes % 3.2 %; Neutrophils # 59.41 10^3/uL (1.8-7.7); Neutrophils % 88.6 %; Nucleated Red Blood Cells % 0 %; Platelet Count 781 10^3/cmm (130-400); Red Cell Distribution Width 14.5 % (12.1-15.1)
[2021-12-20 03:12] LABS: Alanine Aminotransferase 39 U/L (0-33); Albumin Level 2.3 g/dL (3.5-5.2); Alkaline Phosphatase 125 IU/L (35-105); Anion Gap 14.8 (5-19); Aspartate Amino Transferase 72 U/L (0-32); Blood Urea Nitrogen 30 mg/dL (8-23); Carbon Dioxide 21 mmol/L (22-29); Chloride 88 mmol/L (98-107); Globulin 2.9 g/dL (1.3-4.6); Glucose 158 mg/dL (65-115); Magnesium 3.2 mg/dL (1.7-2.3); Osmolality Calculated 259 mOsm/kg (285-295); Phosphorus 3.2 mg/dL (2.5-4.5); Potassium 3.8 mmol/L (3.5-5.1); Sodium 120 mmol/L (136-145); Total Bilirubin 0.4 mg/dL (0.15-1.2); Total Protein 5.2 g/dL (6.6-8.7)
[2021-12-20 03:28] LABS: NT Pro B Type Natriuretic Pept 16691 pg/mL (0-450); Procalcitonin 23.11 ng/mL (0-0.5)
[2021-12-20 03:29] LABS: ABG PCO2 28.2 mmHg (35-45); ABG PH Result 7.47 (7.35-7.45); Arterial Blood Gas Hematocrit 25.2 % (37-47); Base Excess ABG -2.7 mmol/L (-2.0-2.0); Blood Gas Allen Test Pos; Blood Gas Sample Site Radial, left; Blood Gas Sample Type Arterial; HCO3 ABG 20.4 mmol/L (22-26); Oxygen Device VENT; PO2 ABG 88.7 mmHg (80.0-100.0)
[2021-12-20 03:37] LABS: Glucose Point of Care 170 mg/dL (70-110)
[2021-12-20 03:44] LABS: C Reactive Protein 428.2 mg/L (0.0-4.9); D Dimer 10.96 ug/mIFEU (0-0.59); INR 1.13 (0.8-1.2); Partial Thromboplastin Time 46.3 SECONDS (23.9-36.7)
[2021-12-20 03:53] LABS: Lactate (Lactic Acid level) 2.7 mmol/L (0.5-2.2)
[2021-12-20 03:55] LABS: Slide Review Slide Review Perform
[2021-12-20 03:57] LABS: White Blood Count 67.1 10^3/uL (4.0-10.0)
[2021-12-20 03:58] LABS: Creatine Phosphokinase 640 U/L (26-192)
[2021-12-20] MEDS: norepinephrine 8 MG in dextrose 5 % 500 ML 83.82 MG IV (04:08)
[2021-12-20] MEDS: vancomycin 1,250 MG/250 ML PIGGYBACK 200 MG IV (05:08)
[2021-12-20] MEDS: EPINEPHrine 2.5 MG in sodium chloride 0.9% 250 ML 60.47 MG IV ×2 (05:33→10:40)
--- NOTE | 2021-12-20 06:00 | XRR_ITS ---
PROCEDURE INFORMATION: Exam: XR Abdomen Exam date and time: 12/20/2021 5:28 AM Age: 86 years old Clinical indication: Bloating; Additional info: Abdominal distention TECHNIQUE: Imaging protocol: XR of the abdomen. Views: Frontal supine view of the abdomen. 1 View. COMPARISON: CR (ABDOMEN, ) 12/19/2021 9:36 AM FINDINGS: Tubes, catheters and devices: A nasogastric tube is placed with its tip in the mid stomach region. Gastrointestinal tract: Normal. No bowel dilation. Bones/joints: Unremarkable. XR/XR KUB portable [id number] IMPRESSION: There are no acute abdominal findings. Stable appearance of the abdomen compared with 12/19/2021.
[2021-12-20 06:26] LABS: Partial Thromboplastin Time 39.7 SECONDS (23.9-36.7)
[2021-12-20 06:34] LABS: Glucose Point of Care 187 mg/dL (70-110)
[2021-12-20 06:34] LABS: Glucose Point of Care 167 mg/dL (70-110)
[2021-12-20] MEDS: levothyroxine 25 mcg Tablet PO (06:35)
--- NOTE | 2021-12-20 07:00 | XRR_ITS ---
PROCEDURE INFORMATION: Exam: XR Chest Exam date and time: 12/20/2021 5:25 AM Age: 86 years old Clinical indication: Dyspnea; Additional info: SOB TECHNIQUE: Imaging protocol: XR of the chest. Views: 1 view. COMPARISON: CR XR chest 1V portable [id number] 12/19/2021 5:24 PM FINDINGS: Tubes, catheters and devices: An endotracheal tube is placed with its tip 4.6 cm from the leslie. A right internal jugular vein central venous line is placed with its tip at the level of the inferior endplate of T12. A nasogastric tube is present with its tip at least in the mid stomach. EKG leads overlie the chest. Lungs: There are patchy and strandy opacities again seen in the and infrahilar regions bilaterally compatible with a continuing bilateral basilar pneumonia versus atelectasis Pleural spaces: Unremarkable. No pleural effusion. No pneumothorax. Heart/Mediastinum: Calcifications are seen in the mitral valve annulus. Bones/joints: Unremarkable. XR/XR chest 1V portable [id number] IMPRESSION: 1. Stable placement of life support tubing. 2. Continuing bilateral hilar and infrahilar opacities compatible with atelectasis versus pneumonia.
--- NOTE | 2021-12-20 07:04 | PC.NURSE ---
spoke Lawrence about restarting heparin gtt. per md start gtt at 17.28 ml/hr with no bolus.
[2021-12-20 07:17] LABS: Glucose Point of Care 138 mg/dL (70-110)
[2021-12-20] MEDS: pantoprazole 40 mg SDV IVP (07:23)
[2021-12-20 07:41] LABS: Glucose Point of Care 136 mg/dL (70-110)
[2021-12-20] MEDS: budesonide 0.5 mg/2 mL Neb INHALATION (08:17)
[2021-12-20] MEDS: ipratropium-albuterol 3 mL Neb INHALATION ×2 (08:17→11:17)
[2021-12-20] MEDS: aspirin 325 mg Tablet PO (09:03)
[2021-12-20] MEDS: clopidogrel 75 mg Tablet PO (09:03)
--- NOTE | 2021-12-20 09:15 | P.PN_ITS ---
Subjective Subjective: remains on 3 pressors, insulin drip, heparin drip, sedated Medications: Reviewed: Yes Medication Review Details: Current Medications Acetaminophen (Acetaminophen 325 Mg Tablet) 650 mg PO Q6H PRN PRN Reason: Mild/Mod Pain Or Temp >/= 101 Last Admin: 12/20/21 01:22 Dose: 650 mg Documented by: Albuterol/Ipratropium (Ipratropium-Albuterol 3 Ml Neb) 3 ml INHALATION Q4H.RESPIRATORY PRN PRN Reason: SHORTNESS OF BREATH Last Admin: 12/20/21 08:17 Dose: 3 ml Documented by: Aspirin (Aspirin 325 Mg Tablet) 325 mg PO DAILY MOHSEN Last Admin: 12/20/21 09:03 Dose: 325 mg Documented by: Atorvastatin Calcium (Atorvastatin 40 Mg Tablet) 40 mg PO BEDTIME MOHSEN Last Admin: 12/19/21 21:10 Dose: 40 mg Documented by: Budesonide (Budesonide 0.5 Mg/2 Ml Neb) 0.5 mg INHALATION BID.RESPIRATORY MOHSEN Last Admin: 12/20/21 08:17 Dose: 0.5 mg Documented by: Clopidogrel Bisulfate (Clopidogrel 75 Mg Tablet) 75 mg PO DAILY MOHSEN Last Admin: 12/20/21 09:03 Dose: 75 mg Documented by: Dextrose (Dextrose 50% Syringe 50 Ml) 25 ml IVP ONCE PRN; Protocol PRN Reason: hypoglycemia protocol Dextrose (Dextrose 50% Syringe 50 Ml) 50 ml IVP PRN PRN; Protocol PRN Reason: hypoglycemia protocol Glucagon (Glucagon 1 Mg/Ml Inj 1 Ml) 1 mg IM ONCE PRN; Protocol PRN Reason: Adult Acute Hypoglycemia Prot. Hydrocortisone Sodium Succinate (Hydrocortisone 100 Mg/2 Ml Sdv) 100 mg IVP Q12H MOHSEN Last Admin: 12/19/21 10:11 Dose: 100 mg Documented by: Midazolam HCl 100 mg/ Sodium (Chloride) 100 mls @ 0 mls/hr IV .Q0M MOHSEN; Protocol Last Titration: 12/19/21 15:00 Dose: 0 mg/hr, 0 mls/hr Documented by: Fentanyl 2,500 mcg/ Sodium (Chloride) 250 mls @ 0 mls/hr IV .Q0M MOHSEN; Protocol Last Admin: 12/20/21 07:08 Dose: 50 mcg/hr, 5 mls/hr Documented by: Norepinephrine Bitartrate 4 mg (/ Dextrose) 254 mls @ 0 mls/hr IV .Q0M MOHSEN; Protocol Last Titration: 12/19/21 00:27 Dose: Infused Documented by: Heparin Sodium/Sodium Chloride (Heparin Drip) 25,000 unit in 500 mls @ 0 mls/hr IV .Q0M MOHSEN; Protocol Last Titration: 12/20/21 07:03 Dose: 9.81 unit/kg/hr, 17.8 mls/hr Documented by: Dextrose (D5w) 500 mls @ 100 mls/hr IV ONCE PRN; Protocol PRN Reason: Adult Acute Hypoglycemia Prot Vancomycin/PEG/NADA/Lysine/Water (Vancocin) 1,250 mg in 250 mls @ 200 mls/hr IV Q48H MOHSEN Last Infusion: 12/20/21 07:10 Dose: Infused Documented by: Vasopressin 100 unit/ Sodium (Chloride) 100 mls @ 0 mls/hr IV .Q0M PRN; Protocol PRN Reason: HYPOTENSION Last Admin: 12/20/21 04:46 Dose: 0.1 unit/min, 6 mls/hr Documented by: Norepinephrine Bitartrate 8 mg (/ Dextrose) 508 mls @ 0 mls/hr IV .Q0M MOHSEN; Protocol Last Titration: 12/20/21 07:10 Dose: 28 mcg/min, 106.68 mls/hr Documented by: Epinephrine HCl 2.5 mg/ Sodium (Chloride) 252.5 mls @ 0 mls/hr IV .Q0M MOHSEN; Protocol Last Admin: 12/20/21 05:33 Dose: 0.11 mcg/kg/min, 60.47 mls/hr Documented by: Dobutamine HCl/Dextrose (Dobutamine Drip) 500 mg in 250 mls @ 0 mls/hr IV .Q0M MOHSEN; Protocol Sodium Chloride (Sodium Chloride 0.9%) 500 mls @ 999 mls/hr IV .Q31M PRN PRN Reason: HYPOTENSION Insulin Human Regular 250 unit (/ Sodium Chloride) 252.5 mls @ 0 mls/hr IV .Q0M MOHSEN; Protocol Last Titration: 12/20/21 06:35 Dose: 1.56 ml/hr, 1.56 mls/hr Documented by: Metronidazole (Flagyl Iv) 500 mg in 100 mls @ 100 mls/hr IV Q8H MOHSEN; Protocol Last Admin: 12/20/21 09:04 Dose: 100 mls/hr Documented by: Lactated Ringer's (Lactated Ringers) 1,000 mls @ 75 mls/hr IV .[id number] [facility] Last Admin: 12/20/21 01:15 Dose: 75 mls/hr Documented by: Imipenem/Cilastatin Sodium 250 (mg/ Sodium Chloride) 100 mls @ 200 mls/hr IV Q 12H [facility]; Protocol Last Infusion: 12/20/21 07:36 Dose: Infused Documented by: Levothyroxine Sodium (Levothyroxine 25 Mcg Tablet) 25 mcg PO QAM [facility] Last Admin: 12/20/21 06:35 Dose: 25 mcg Documented by: Ondansetron HCl (Ondansetron 2 Mg/Ml Sdv 2 Ml) 4 mg IVP Q8H PRN PRN Reason: vomiting, or N/V if npo Pantoprazole Sodium (Pantoprazole 40 Mg Sdv) 40 mg IVP Q24H [facility] Last Admin: 12/20/21 07:23 Dose: 40 mg Documented by: Vancomycin HCl (Vancomycin 1,000 Mg Oral Mira (Btl)) 250 mg PO QID [facility] Last Admin: 12/20/21 09:03 Dose: 1 dose Documented by: Vitals/I&O/Wt Last Vital Signs Temp 101.2 F H 12/20/21 07:00 Pulse 111 H 12/20/21 08:18 Resp 30 H 12/20/21 08:20 BP 154/113 12/20/21 07:15 Pulse Ox 96 12/20/21 08:20 12/19/21 12/20/21 12/20/21 22:59 06:59 14:59 Intake Total 1346.360 / 3058.401 2212.285 / 5270.686 636.563 / 636.563 Output Total 1700 / 1700 980 / 2680 Balance -353.640 / 5929.697 2152.285 / 2590.686 636.563 / 636.563 Weight last 48 hrs Weight 95.98 kg Physical Exam Narrative: febrile, intubated fio2 =50%, TV 400, PEEP 5 pressors include levophed, epi, and vasopressin heent- nc/at lungs crackles heart tachy abd tender, guarding,distended, no BS ext + pitting edema Urinary Catheter Management: Iyer: Cath Placed During This Visit: no Reason for Continuing Indwelling Catheter: Accurate Measurement of Urinary Output in Critically Ill Patients Data : 12/20/21 02:15 12/20/21 02:15 Micro: Microbiology 12/18/21 07:10 Urine Culture - Preliminary Urine,Clean Catch Gram Negative Rods 12/18/21 04:33 Blood Culture - Preliminary Blood NEGATIVE TO DATE 12/18/21 04:59 Blood Culture - Preliminary Blood NEGATIVE TO DATE A&P Assessment and plan (1) BRIGIDA (acute kidney injury): 86 yr old female 1. BRIGIDA from septic shock Q if has CKD- risk factors include- age, htn, dm -renal us w/o hydronephrosis -no acute indication for dialysis -cr improving w/ fluids -cont or d/c fluids per medicine ua c/w ATN 2. Septic shock on broad spectrum abx -severe leukocytosis 3. lactic acidosis-improved to 2.7 4. resp alkalosis -per medicine 5. hyponatremia- normal tsh, cortisol 31 -urine lytes -from BRIGIDA, CHF -free water restrict -if na continues to drop- can use 2% saline and lasix 6. CHF- BNP 39076 7. Q uti- on abx 8. Grade 2 diastolic dysfunction and + trop per cardiology prognosis is very poor seen and examined w/ RN - telehealth visit time of visit Status: Acute Plan see above Attestations Medical Necessity Statement*: VDRF, setic shock, leukopcytosis, hyponatremia Time Spent in Patient Care: 16 - 35 minutes (>than 50% of time spent in counselling and/or direct pt care on unit) . 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
--- NOTE | 2021-12-20 09:27 | PM.PN ---
Subjective Subjective: Patient remains intubated and sedated. Her abdomen has become more tense. She is hypotensive and is requiring 3 pressors in order to maintain blood pressure. Those include norepinephrine, epinephrine, dobutamine and vasopressin. Her abdomen has become more and more tense. She has not been responsive though she remains fairly heavily sedated on IV fentanyl and midazolam. Vitals/I&O/Wt Last Vital Signs Temp 101.2 F H 12/20/21 07:00 Pulse 111 H 12/20/21 08:18 Resp 30 H 12/20/21 08:20 BP 154/113 12/20/21 07:15 Pulse Ox 96 12/20/21 08:20 12/19/21 12/20/21 12/20/21 22:59 06:59 14:59 Intake Total 1346.360 / 3058.401 2212.285 / 5270.686 636.563 / 636.563 Output Total 1700 / 1700 980 / 2680 Balance -353.640 / 4414.341 6832.285 / 2590.686 636.563 / 636.563 Weight last 48 hrs Weight 211 lb 9.6 oz Physical Exam Narrative: GENERAL: In general she is critically ill, intubated and sedated HEENT: Exam within normal limits. [] NECK: Supple without jugular vein distention. The carotid upstroke is normal without bruits. [] BACK: Exam normal. [] LUNGS: Clear. [] HEART: Regular rate and rhythm. [] ABDOMEN: Benign without organomegaly or tenderness. [] EXTREMITIES: No edema. [] NEUROLOGIC: Not done. [] SKIN: Unremarkable. [] Urinary Catheter Management: Iyer: Cath Placed During This Visit: no Reason for Continuing Indwelling Catheter: Accurate Measurement of Urinary Output in Critically Ill Patients Data : 12/20/21 02:15 12/20/21 02:15 Micro: Microbiology 12/18/21 07:10 Urine Culture - Preliminary Urine,Clean Catch Gram Negative Rods 12/18/21 04:33 Blood Culture - Preliminary Blood NEGATIVE TO DATE 12/18/21 04:59 Blood Culture - Preliminary Blood NEGATIVE TO DATE A&P Assessment and plan (1) Leukocytosis: Status: Acute (2) Acute abdomen: Status: Acute (3) Abdominal distention: Status: Acute (4) Lactic acidosis: Status: Acute (5) BRIGIDA (acute kidney injury): Status: Acute (6) Pneumonia: Status: Acute (7) Shock: Status: Acute (8) Acute and chronic respiratory failure with hypoxia: Status: Acute (9) DM type 2 (diabetes mellitus, type 2): Status: Acute (10) COPD (chronic obstructive pulmonary disease): Status: Acute (11) Elevated troponin: Status: Acute Plan The intra-abdominal process seems to be the major concern and culprit. Obviously, no cardiac investigation is warranted. Family discussion planned. Attestations Medical Necessity Statement*: Remains critically ill in the ICU. 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
[2021-12-20] MEDS: norepinephrine 8 MG in dextrose 5 % 500 ML 106.68 MG IV (09:29)
--- NOTE | 2021-12-20 11:55 | P.CONIM_ITS ---
Providers/Reason For Consult Consulting Physician/Specialty*: General Surgery Dr. Leiva Reason for Consult*: Abdominal distention Requesting Physician: Dr. Baez Attending Physician: See Correa MD Primary Care Provider: Hu Del Rosario History of Present Illness History of Present Illness Information obtained from patient's chart as she is on the ventilator. Lety Rogers is a 86 year old female with multiple comorbidities who is brought to the ER by her daughter as she looked pale and weak and had vomited multiple times. Patient is noted to be hypoxic with EKG changes as well as leukocytosis and thrombocytosis. Patient subsequently deteriorated and had to be intubated but was also noted to be in septic shock likely secondary to UTI. Patient did not have a CT abdomen pelvis on initial evaluation as she was hypot ensive on pressors. At present she is on 3 pressors and I was consulted due to concerns of possible acute abdomen since apparently the abdomen was very rigid to palpation earlier today. KUB does not show any evidence of free air and patient is too unstable to be transferred to CT scanner Review of Systems General: Reports: ROS unobtainable due to mental status Medications/Allergies Home Medications Medication Instructions Recorded Confirmed Last Taken Type albuterol sulfate 90 mcg/actuation 1 puff INHALATION BID PRN 12/18/21 12/18/21 Unknown History aerosol inhaler aspirin 81 mg chewable tablet 81 mg PO DAILY 12/18/21 12/18/21 Unknown History atorvastatin 80 mg tablet 80 mg PO DAILY 12/18/21 12/18/21 Unknown History baclofen 10 mg tablet 10 mg PO TID PRN 12/18/21 12/18/21 Unknown History clopidogrel 75 mg tablet 75 mg PO DAILY 12/18/21 12/18/21 Unknown History famotidine 20 mg tablet 20 mg PO BID 12/18/21 12/18/21 Unknown History fluticasone 250 mcg-salmeterol 50 1 inh INHALATION BID 12/18/21 12/18/21 Unknown History mcg/dose blistr powdr for inhalation fluticasone propionate 50 2 spray INTRANASAL BID 12/18/21 12/18/21 Unknown History mcg/actuation nasal spray,suspension furosemide 20 mg tablet 20 mg PO DAILY 12/18/21 12/18/21 Unknown History insulin glargine 100 unit/mL (3 55 unit SUBCUT BEDTIME 12/18/21 12/18/21 Unknown History mL) subcutaneous pen (Basaglar KwikPen U-100 Insulin) ipratropium 20 mcg-albuterol 100 1 puff INHALATION Q6H PRN 12/18/21 12/18/21 Unknown History mcg/actuation mist for inhalation (Combivent Respimat) isosorbide mononitrate 30 mg 30 mg PO DAILY 12/18/21 12/18/21 Unknown History tablet,extended release 24 hr levetiracetam 500 mg tablet 500 mg PO BID 12/18/21 12/18/21 Unknown History levothyroxine 25 mcg tablet 25 mcg PO DAILY 12/18/21 12/18/21 Unknown History lisinopril 40 mg tablet 40 mg PO DAILY 12/18/21 12/18/21 Unknown History metoprolol succinate 25 mg 25 mg PO DAILY 12/18/21 12/18/21 Unknown History tablet,extended release 24 hr multivitamin 1 tab PO DAILY 12/18/21 12/18/21 Unknown History venlafaxine 37.5 mg tablet 37.5 mg PO TID 12/18/21 12/18/21 Unknown History Allergies Allergy/AdvReac Type Severity Reaction Status Date / Time ciprofloxacin Allergy Unknown Verified 12/18/21 03:34 metformin Allergy ADR-Headach Verified 12/18/21 03:34 e morphine Allergy ALGY-Swell Verified 12/18/21 03:34 Lip/Tongue/Throat nitrofurantoin Allergy ADR-Vomitin Verified 12/18/21 03:34 g rofecoxib Allergy ALGY-Hives Verified 12/18/21 03:34 Sulfa (Sulfonamide Allergy ADR-Vomitin Verified 12/18/21 03:34 Antibiotics) g Current Medications Generic Name Dose Route Start Last Admin Trade Name Freq PRN Reason Stop Dose Admin Acetaminophen 650 mg 12/18/21 07:05 12/20/21 01:22 Acetaminophen 325 Mg Tablet PO 650 mg Q6H PRN Administration Mild/Mod Pain Or Temp >/= 101 Albuterol/Ipratropium 3 ml 12/18/21 07:05 12/20/21 11:17 Ipratropium-Albuterol 3 Ml Neb INHALATION 3 ml Q4H.RESPIRATORY PRN Administration SHORTNESS OF BREATH Aspirin 325 mg 12/18/21 09:00 12/20/21 09:03 Aspirin 325 Mg Tablet PO 325 mg DAILY MOHSEN Administration Atorvastatin Calcium 40 mg 12/18/21 21:00 12/19/21 21:10 Atorvastatin 40 Mg Tablet PO 40 mg BEDTIME MOHSEN Administration Budesonide 0.5 mg 12/18/21 08:00 12/20/21 08:17 Budesonide 0.5 Mg/2 Ml Neb INHALATION 0.5 mg BID.RESPIRATORY MOHSEN Administration Clopidogrel Bisulfate 75 mg 12/18/21 09:00 12/20/21 09:03 Clopidogrel 75 Mg Tablet PO 75 mg DAILY MOHSEN Administration Hydrocortisone Sodium Succinate 100 mg 12/18/21 10:30 12/19/21 10:11 Hydrocortisone 100 Mg/2 Ml Sdv IVP 100 mg Q12H MOHSEN Administration Midazolam HCl 100 mg/ Sodium 100 mls @ 0 mls/hr 12/18/21 04:15 12/19/21 15:00 Chloride IV 0 mg/hr .Q0M MOHSEN 0 mls/hr Titration Protocol Per Protocol Fentanyl 2,500 mcg/ Sodium 250 mls @ 0 mls/hr 12/18/21 04:15 12/20/21 07:08 Chloride IV 50 mcg/hr .Q0M MOHSEN 5 mls/hr Administration Protocol Per Protocol Norepinephrine Bitartrate 4 mg 254 mls @ 0 mls/hr 12/18/21 05:15 12/19/21 00:27 / Dextrose IV Infused .Q0M MOHSEN Titration Protocol Per Protocol Heparin Sodium/Sodium Chloride 25,000 unit in 500 mls @ 0 mls/hr 12/18/21 07:05 12/20/21 07:03 Heparin Drip IV 9.81 unit/kg/hr .Q0M MOHSEN 17.8 mls/hr Titration Protocol Per Protocol Vancomycin/PEG/NADA/Lysine/Water 1,250 mg in 250 mls @ 200 mls/hr 12/20/21 05:00 12/20/21 07:10 Vancocin IV Infused Q48H MOHSEN Infusion Vasopressin 100 unit/ Sodium 100 mls @ 0 mls/hr 12/18/21 09:02 12/20/21 04:46 Chloride IV 0.1 unit/min .Q0M PRN 6 mls/hr HYPOTENSION Administration Protocol Per Protocol Norepinephrine Bitartrate 8 mg 508 mls @ 0 mls/hr 12/18/21 10:30 12/20/21 09:29 / Dextrose IV 28 mcg/min .Q0M MOHSEN 106.68 mls/hr Administration Protocol Per Protocol Epinephrine HCl 2.5 mg/ Sodium 252.5 mls @ 0 mls/hr 12/18/21 14:15 12/20/21 10:40 Chloride IV 0.11 mcg/kg/min .Q0M MOHSEN 60.47 mls/hr Administration Protocol Per Protocol Insulin Human Regular 250 unit 252.5 mls @ 0 mls/hr 12/19/21 08:15 12/20/21 06:35 / Sodium Chloride IV 1.56 ml/hr .Q0M MOHSEN 1.56 mls/hr Titration Protocol Per Protocol Metronidazole 500 mg in 100 mls @ 100 mls/hr 12/19/21 09:00 12/20/21 10:11 Flagyl Iv IV Infused Q8H MOHSEN Infusion Protocol Lactated Ringer's 1,000 mls @ 75 mls/hr 12/19/21 09:45 12/20/21 01:15 Lactated Ringers IV 75 mls/hr .[id number] MOHSEN Administration Imipenem/Cilastatin Sodium 250 100 mls @ 200 mls/hr 12/19/21 18:00 12/20/21 07:36 mg/ Sodium Chloride IV Infused Q12H MHOSEN Infusion Protocol Levothyroxine Sodium 25 mcg 12/19/21 06:00 12/20/21 06:35 Levothyroxine 25 Mcg Tablet PO 25 mcg QAM MOHSEN Administration Pantoprazole Sodium 40 mg 12/18/21 08:00 12/20/21 07:23 Pantoprazole 40 Mg Sdv IVP 40 mg Q24H MOHSEN Administration Vancomycin HCl 250 mg 12/19/21 09:00 12/20/21 09:03 Vancomycin 1,000 Mg Oral Mira (Btl) PO 1 dose QID MOHSEN Administration PFSH Acute PFSH: Medical History CAD (coronary artery disease) CKD (chronic kidney disease) Congestive heart failure COPD (chronic obstructive pulmonary disease) DM type 2 (diabetes mellitus, type 2) Dyslipidemia Frequent UTI Hypothyroidism Intolerance of continuous positive airway pressure (CPAP) ventilation Occluded coronary artery stent MADAY (obstructive sleep apnea) Sarcoidosis Surgical History H/O Spinal surgery H/O: hysterectomy History of cholecystectomy Hx of appendectomy Stented coronary artery Family History Other CAD (coronary artery disease) DM type 2 (diabetes mellitus, type 2) Social History Smoking and tobacco status: never smoked Lives independently: No Household members: family Vitals/I&O/Wt Last Vital Signs Temp 101.2 F H 12/20/21 07:00 Pulse 115 H 12/20/21 11:19 Resp 24 H 12/20/21 11:23 BP 154/113 12/20/21 10:00 Pulse Ox 96 12/20/21 11:23 12/19/21 12/20/21 12/20/21 22:59 06:59 14:59 Intake Total 1346.360 / 5270.686 2212.285 / 5270.686 1205.598 / 1205.598 Output Total 1700 / 2680 980 / 2680 Balance -353.640 / 2590.686 1232.285 / 2590.686 1205.598 / 1205.598 Weight last 48 hrs Weight 211 lb 9.6 oz Physical Exam Narrative: HEENT: Normocephalic Eye: Sclera /conjunctiva normal Respiratory and chest: Intubated on the ventilator Abdomen: Soft, distended, no guarding or rigidity Neurological: Not assessed as patient is intubated Skin: Intact, no lesions appreciated on gross exam Urinary Catheter Management: Iyer: Cath Placed During This Visit: no Reason for Continuing Indwelling Catheter: Accurate Measurement of Urinary Output in Critically Ill Patients Data : 12/20/21 02:15 12/20/21 02:15 Micro: Microbiology 12/18/21 07:10 Urine Culture - Preliminary Urine,Clean Catch Gram Negative Rods A&P Assessment and plan (1) Septic shock: 86-year-old female with multiple comorbidities, intubated maxed out on 3 pressors who continues to be critically ill. There was concerns for possible acute abdomen earlier today since his abdomen is rigid on physical exam. When I examined her abdomen is soft but distended and KUB did not show any evidence of free air. Patient needs a CT abdomen pelvis to rule out other intra-abdominal pathology but she is too unstable for a scan and she would not be a candidate for exploratory laparotomy due to her hemodynamic instability. There have been discussions about comfort care with the family. I am available if the patient status changes for further evaluation. 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
--- NOTE | 2021-12-20 12:06 | PC.CHAP ---
Pastoral Care Encounter/Spiritual Assessment Type of Contact [] Declined assistant pressman visit [] Patient/Family/Request visit [] Outpatient visit [] Follow-up visit [] Physician referral [] Code/Alert [x] Routine visit [] Staff referral [] Actively dying [] Patient sleeping [x] Family support [] [] Out of room [] Palliative care [] [] Receiving care in room [] Pre-surgical visit [] Trauma [] Long length of stay [x] ICU visit [] Other: Relational/Emotional Strength [] Patient feels connected with others/family/visitors/staff [] Distress [] Loneliness/isolation [] Abandonment Spirituality of Patient [] Person of Candi [] Attends Yazdanism of their Candi [] Believes in Prayer [] Reads Bible or Pentecostalism materials [] There are Spiritual issues to be addressed Manager Customer Interventions [x] Prayer [] Active listening [] Non-anxious presence [] Spiritual/emotional support [] Crisis/trauma care [] Spiritual counseling [] Bereavement support [] Provided bereavement packet [] Provided Bible/devotional materials [] Provided toy/stuffed animal, coloring book to patient or family member [] Provided Communion [] Anointing/[place] [] Salvation [x] Completed spiritual assessment [] Other: Impact on Illness or Injury [] Angry [] Fearful [] Anxious [] Often cries [] Exhaustion [] Unable to work [] Unable to attend religious [] Unable to walk/stand [] Unable to read [] Unable to drive [] Unable to eat/drink [] Unable to sleep [] Unable to be with family [] Patient intubated [] Other: Summary Time spent with patient
--- NOTE | 2021-12-20 12:13 | PC.RESP ---
pt terminally extubated per family wishes. family at bedside
--- NOTE | 2021-12-20 12:18 | PC.NURSE ---
Family made the decision to make patient comfort care only
--- NOTE | 2021-12-20 12:51 | PM.PN ---
Subjective Subjective: Patient was seen this morning, remains febrile overnight, hypotensive, is on 3 pressors, evidence of multiorgan failure, acute renal failure, acute liver failure, remains ventilator dependent, on 50% FiO2, remains critically ill, significant leukocytosis, abdomen is increasingly more distended, no bowel sounds heard, with guarding, rebound, rigidity, highly suspicious for bowel perforation, patient is too clinically unstable friendly further imaging, close to clinically unstable for any surgical intervention, does have evidence of aspiration pneumonia, has evidence of UTI Had a family meeting with patient's healthcare power of hairspring truer daughter Chante at bedside with her son -I advised family that I think likely what had happened was that she came in originally with abdominal pain complaints likely had some abdominal pathology resulting in bilious emesis which she aspirated resulting in aspiration pneumonia resulting in intubation -Currently she is in septic shock, severe septic shock on 3 pressors, multiorgan failure, acute liver failure, acute renal failure, remains ventilator dependent, on 50% FiO2, significant leukocytosis and as above her abdomen remains distended -I advised family that I feel that there is an acute abdominal pathology going on, likely abdominal perforation however it could be severe ileus, severe obstruction versus a glides versus C. difficile colitis versus toxic megacolon. Given how distended the abdomen is today no bowel sounds, with guarding rebound rigidity, to me it seems like an acute surgical abdomen given that she is on 3 pressors, and she continues to be febrile, continues to remain hemodynamically unstable she needs to have surgical intervention to her abdomen. However she is too clinically unstable to undergo surgical intervention. She would likely during any attempts on surgical intervention. In addition I cannot unfortunately give him a good answer in terms of what is going on in the abdomen as she remains to clinically unstable to even do a CT scan, with even minimal movement in bed she becomes quite hypotensive. -She also has elevated troponins, for which she is on a heparin drip, I advised only that there is significant supply demand ischemia going on with the heart given the sepsis that she is going through, high risk of cardiac arrest, high risk of malignant arrhythmia, morbidity and mortality associated -I advised that as she remains critically ill for 48 hours, remains on 3 pressors, now with an abdominal pathology that we cannot intervene on I think her prognosis is poor, she remains critically ill she is on maximal medical therapy and remains critically ill -Likely she will remain ventilator dependent, likely remain dependent on pressor therapy, remained in multiorgan failure, -After discussing the case with all family members in detail, I discussed options available continue medical intervention versus pursuing comfort care -After discussing all the risks and benefits they wish to study, all questions answered they want to proceed with comfort care -Chante does not want her mother to suffer, they want her mom to pass away comfortably, they do not want chest compressions, they do not want her to remain on a ventilator, they want her to pass away comfortably -After discussing the risks and benefits of comfort care they voiced understanding, all questions answered, agreed to proceed with comfort care Vitals/I&O/Wt Last Vital Signs Temp 101.2 F H 12/20/21 07:00 Pulse 77 12/20/21 12:30 Resp 24 H 12/20/21 11:23 BP 154/113 12/20/21 12:30 Pulse Ox 96 12/20/21 11:23 12/19/21 12/20/21 12/20/21 22:59 06:59 14:59 Intake Total 1346.360 / 3058.401 2212.285 / 5270.686 2538.224 / 2538.224 Output Total 1700 / 1700 980 / 2680 Balance -353.640 / 2814.679 0031.285 / 2590.686 2538.224 / 2538.224 Weight last 48 hrs Weight 95.98 kg Physical Exam Narrative: Critically ill, intubated, sedated on mechanical ventilation Const: GENERAL APPEARANCE: ill appearing and frail appearing OTHER: Critically ill, intubated, sedated on mechanical ventilation Resp: EFFORT & INSPECTION: Yes tachypneic AUSCULTATION: crackles OTHER: Tachypnea, crackles in all lung hendrix Cardio: COMMON NORMALS: regular rhythm RATE: tachycardic RHYTHM: regular rhythm GI: OTHER: Abdomen grossly distended, rigid, has guarding, has rebound, has rigidity, no bowel sounds heard Urinary Catheter Management: Iyer: Cath Placed During This Visit: no Reason for Continuing Indwelling Catheter: Accurate Measurement of Urinary Output in Critically Ill Patients Data : 12/20/21 02:15 12/20/21 02:15 Micro: Microbiology 12/18/21 07:10 Urine Culture - Preliminary Urine,Clean Catch Gram Negative Rods A&P Assessment and plan (1) Acute and chronic respiratory failure with hypoxia: Requiring 15 L nonrebreather on presentation, still intubated, requiring high percent FiO2 and with that saturating 85-95%. Currently saturation slightly better up to 100%. Left lower lobe pneumonia noted. Started on empiric antibiotics with Zosyn, vancomycin. Daughter reports multiple episodes of vomiting, discussed possibility of aspiration component. Daughter reports low-grade temp earlier in the week on Monday. Will check COVID-19. Discussed with her daughter cannot exclude possible PE, will continue with heparin drip at this time. She is currently too unstable to try to get CTA. Consider additional imaging to exclude PE and de-escalate anticoagulation once able. Reported also history of CHF. NT proBNP is moderately elevated. Noted possible septic shock with lactic acidosis, lactic acid 6.1, received 1 L of fluid in route, however, with crackles on presentation with concern for fluid overload at this time will avoid giving 30 cc/kg resuscitation. Continue pressor support with Levophed. Blood cultures collected. Status: Acute (2) Shock: Initially concern for STEMI, possibility of cardiogenic shock, however, this appears to be less. STEMI alert was called off, no ST elevation noted on subsequent EKG. Reversal of transient widening of QRS. Initial troponin 61. Complete troponin EKG series. Assess TTE. Possible septic shock with pneumonia, daughter also reports history of recurrent UTI. Blood cultures collected. Continue antibiotic coverage. Discussed with daughter lower possibility but cannot exclude at this time PE. Continue anticoagulation for now until stabilizes somewhat further to be able to assess with CTA. Assess TTE. With history of sarcoidosis of the lung. Mild hyponatremia with normal potassium. I do see also past prescription of steroid. Requested serum cortisol. Will give stress dose steroid as well with suspicion of component of adrenal sufficiency. Status: Acute (3) Lactic acidosis: As above. Used to be on Metformin in the past, but no longer. Status: Acute (4) Pneumonia: Continue Zosyn, vancomycin. Possible component of aspiration. Check COVID-19. As above. Status: Acute (5) Abdominal distention: Daughter reports her mother always has a large abdomen, but feels perhaps abdomen could be more distended than usual. Acute abdominal series obtained. Not very stable to go to the CT at the moment. X-ray shows nondistended gas-filled loop of colon, otherwise abdomen largely gasless. Requesting limited ultrasound to assess for ascites given history of CHF, chronic abdominal distention. With significant lactic acidosis, consideration may be given to possible bowel ischemia, although daughter denies symptoms that would suggest bowel ischemia, although cannot exclude global hypoperfusion with hypotension. Currently would not be stable enough to proceed with surgery. Status: Acute (6) BRIGIDA (acute kidney injury): Possible BRIGIDA on CKD, versus CKD. Baseline creatinine currently is unknown. Creatinine at the moment is 1.6. With hypotension, shock, anticipate acute kidney injury. Iyer catheter had been placed. Additionally assessed by kidney ultrasound. Hold lisinopril. Monitor LAITH. Reassess renal function. Status: Acute (7) Elevated troponin: Cardiology evaluation appreciated. Initially concern for STEMI, possibility of cardiogenic shock, however, this appears to be less. STEMI alert was called off, no ST elevation noted on subsequent EKG. Reversal of transient widening of QRS. Initial troponin 61. Complete troponin EKG series. Assess TTE. Continue aspirin, Plavix with history of stenting. Beta-cate on hold. Continue statin. Status: Acute (8) DM type 2 (diabetes mellitus, type 2): Continue insulin glargine, decrease dose to 40 units at bedtime. Sliding scale. Status: Acute (9) Acute abdomen: Status: Acute (10) Leukocytosis: Status: Acute Plan Pursuing comfort care Acute abdominal process -Concerning for possible perforation versus ileus versus a glides versus obstruction versus C. difficile colitis -X-ray showing colonic obstruction -Abdomen distended, has guarding,, has rebound, has rigidity -Clinically unstable to undergo CT scanning -Clinically unstable to undergo surgical intervention -Start Flagyl, p.o. vancomycin for possible C. difficile colitis -Correct electrolytes -Serial abdominal exams, serial KUBs -Consult surgical service -Status is critical, prognosis poor DIC, secondary to septic shock Neutrophilic leukocytosis, secondary septic shock, possible C. difficile colitis? Hyponatremia, secondary to acute renal failure, Acute hypoxic respiratory failure -Secondary to aspiration pneumonia -Has a history of pulmonary sarcoidosis -History of COPD and MADAY -History of diastolic CHF Plan -Continue broad-spectrum antibiotic therapy vancomycin, Primaxin, Flagyl -Continue intubation, mechanical ventilation -Fentanyl, Versed for sedation -Minimize tidal volume, minimize FiO2 -Given elevated troponins, concern for possible pulmonary emboli, bilateral lower extremity ultrasound, heparin drip -Clint budesonide -Family wants to continue full code -Heparin for DVT prophylaxis -Protonix for GI prophylaxis -Once stable will do CTA of the chest, CT abdomen and Aspiration pneumonia -Antibiotics as above Septic shock -Maintain map in 65 -Continue vancomycin, Zosyn -Stress dose hydrocortisone -Levophed, vasopressin, epi drip Acute kidney injury -Likely secondary to sepsis -Acute renal failure, dropping urine output -Consult nephrology service NSTEMI -Elevated troponins, positive delta -Likely second underlying sepsis, however cannot rule out underlying CAD given age, prior history of CAD status post emptying x3 -Continue aspirin, statin, Plavix, heparin drip -Echocardiogram -Cardiology on consult Type 2 diabetes mellitus -Start insulin drip History of thrombocytosis History of recurrent UTIs 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
--- NOTE | 2021-12-20 12:56 | PC.NURSE ---
MTS notified MTS notified of pt's . MTS contact Amadou Margoth stated pt is not candidate for donation and may be released to chosen home.
--- NOTE | 2021-12-20 13:25 | PC.NURSE ---
Patient at 1245 verified by Carolyn QUARLES and this nurse. Dr. Correa notified
--- NOTE | 2021-12-20 13:27 | PM.DDS ---
Discharge Providers DDS Date of Admission: 12/18/21 05:23 Date Summary Completed: 12/20/21 Attending Provider at Admission: Raphael Bravo Attending Provider at Discharge: See Correa MD Primary Care Provider: Hu [facility]ONE Diagnoses Hospital Diagnoses (1) Acute and chronic respiratory failure with hypoxia: (2) Shock: (3) Lactic acidosis: (4) Pneumonia: (5) Abdominal distention: (6) BRIGIDA (acute kidney injury): (7) Elevated troponin: (8) DM type 2 (diabetes mellitus, type 2): (9) Acute abdomen: (10) Leukocytosis: Reason for Visit Reason for Visit CP/Back pain, hypotensive Summary Summary Summary: 86-year-old lady with history of CAD, stenting x3, CHF, sarcoidosis of the lung, COPD, DM 2, hypothyroidism, dementia was brought in after her daughter found her not doing well at 2 AM this morning. Patient was [facility] to [facility] for acute hypoxic respiratory failure secondary to aspiration pneumonia, UTI, septic shock, multiorgan failure, NSTEMI, and acute abdominal pathology. What I feel likely had happened is she came in with complaints of abdominal pain, and bilious emesis, likely secondary abdominal pathology and acute abdominal process, likely aspirated resulting in aspiration pneumonia. Patient was admitted, intubated, sedated on mechanical ventilation, in the emergency room as she aspirated, managed in ICU, she was on 3 pressors, with evidence of acute renal failure, acute liver failure, elevated troponins likely supply demand ischemia from septic shock. Patient remained in septic shock for over 48 hours, remained febrile, urine culture showing gram-negative rods, blood cultures negative so far, remained hypotensive, despite being on 3 pressor therapy, acute renal failure, acute liver failure, remaining on 50% FiO2 ventilator dependent. During her hospitalization she developed increasing abdominal distention with significant leukocytosis over 70,000. Abdomen wound was distended, with guarding, rebound, rigidity, concerning for acute abdomen. Unfortunately patient was clinically unstable for any further imaging including CAT scan, and too unstable for any significant surgical intervention. I advised family that she likely has an acute abdominal pathology, likely abdominal perforation however she could have an ileus or colonic obstruction or olglives or C. difficile colitis or toxic megacolon. However she is too clinically unstable for us to do any further imaging she would likely while attempting to do any CAT scans, as she remains hemodynamically unstable despite being on 3 pressors. In addition she is clinically unstable to do any surgical intervention, I spoke with surgical service, and they agreed As patient remained in acute respiratory failure, septic shock, multiorgan failure, on 3 pressor therapy, with acute abdomen. Patient's prognosis was poor, status is critical. After discussing all options available to patient, patient's healthcare power of erisa attorney daughter Chante proceeded with comfort care. Patient was made comfort care on 12/20/2021 early in the morning, she at 12:45 PM Additional Data Advance directives?: Yes Discharge Plan Discharge Patient Disposition: Home Condition: Stable Prescriptions: No Action fluticasone propion-salmeterol 250-50 mcg/dose blister with device 1 inh INHALATION BID 0RF atorvastatin 80 mg tablet 80 mg PO DAILY 0RF levetiracetam 500 mg tablet 500 mg PO BID 0RF isosorbide mononitrate 30 mg tablet extended release 24 hr 30 mg PO DAILY 0RF clopidogrel 75 mg tablet 75 mg PO DAILY 0RF levothyroxine 25 mcg tablet 25 mcg PO DAILY 0RF famotidine 20 mg tablet 20 mg PO BID 0RF baclofen 10 mg tablet 10 mg PO TID PRN (Reason: Pain) 0RF venlafaxine 37.5 mg tablet 37.5 mg PO TID 0RF furosemide 20 mg tablet 20 mg PO DAILY 0RF metoprolol succinate 25 mg tablet extended release 24 hr 25 mg PO DAILY 0RF albuterol sulfate 90 mcg/actuation HFA aerosol inhaler 1 puff INHALATION BID PRN (Reason: Shortness Of Breath) 0RF lisinopril 40 mg tablet 40 mg PO DAILY 0RF fluticasone propionate 50 mcg/actuation spray,suspension 2 spray INTRANASAL BID 0RF Basaglar KwikPen U-100 Insulin 100 unit/mL (3 mL) insulin pen 55 unit SUBCUT BEDTIME 0RF multivitamin Tablet 1 tab PO DAILY 0RF aspirin 81 mg Tablet,Chewable 81 mg PO DAILY 0RF Combivent Respimat 20-100 mcg/actuation mist 1 puff INHALATION Q6H PRN (Reason: Shortness Of Breath) 0RF Patient Instructions: Opioid Safety DS Attestations Time Spent in /Discharge Care*: less than 30 min Quality - AMI: AMI present?: No Quality - Stroke: CVA present?: No Quality - VTE: VTE present?: No Coding Level of Care Code 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
--- NOTE | 2021-12-20 13:27 | PC.NURSE ---
All meds wasted per MAR witnessed by Carolyn QUARLES
== END 2021-12-20 13:30 | disposition expired | DRG 871 ==
LOC: ER 04:43 → ICU 05:45
PROVIDERS: Internal Medicine Nephrology; Admitting Provider Internal Medicine; Emergency Provider Emergency Medicine; PCP Physician Assistant Medical; Visit Provider Family Medicine
DX: A41.9 Sepsis, unspecified organism (principal); R65.21 Severe sepsis with septic shock; J69.0 Pneumonitis due to inhalation of food and vomit; K72.00 Acute and subacute hepatic failure without coma; J96.21 Acute and chronic respiratory failure with hypoxia; D65 Disseminated intravascular coagulation [defibrination syndrome]; N17.9 Acute kidney failure, unspecified; E87.1 Hypo-osmolality and hyponatremia; N39.0 Urinary tract infection, site not specified; R10.0 Acute abdomen; E78.2 Mixed hyperlipidemia; E11.9 Type 2 diabetes mellitus without complications; R14.0 Abdominal distension (gaseous); I25.10 Atherosclerotic heart disease of native coronary artery without angina pectoris; N18.9 Chronic kidney disease, unspecified; I50.9 Heart failure, unspecified; J44.9 Chronic obstructive pulmonary disease, unspecified; E78.5 Hyperlipidemia, unspecified; E03.9 Hypothyroidism, unspecified; I95.9 Hypotension, unspecified; R77.8 Other specified abnormalities of plasma proteins; Z95.5 Presence of coronary angioplasty implant and graft; Z79.4 Long term (current) use of insulin; Z79.82 Long term (current) use of aspirin; Z79.02 Long term (current) use of antithrombotics/antiplatelets; D86.9 Sarcoidosis, unspecified; Z51.5 Encounter for palliative care; B96.20 Unspecified Escherichia coli [E. coli] as the cause of diseases classified elsewhere
CPT/HCPCS: 31500; 36415; 36416; 36600; 36620; 71045; 74018; 76705; 76770; 76937; 80053; 80503; 81001; 82436; 82533; 82550; 82570; 82803; 82962; 83605; 83735; 83880; 84100; 84133; 84145; 84300; 84443; 84484; 85025; 85378; 85384; 85610; 85730; 86140; 87040; 87077; 87086; 87186; 87635; 93005; 93306; 93970; 94002; 94003; 94640; 94664; 94799; 96365; 96366; 96367; 96368; 96372; 99291; 99292; A4570; C1751; C9113; J0171; J0330; J0743; J1644; J1720; J1815 ×2; J2250; J2543; J3010; J3370; J3490; J7050; J7626; Q3014; S0030